=== PATIENT | female | born 1955 | race Asian ===

== ENCOUNTER 2022-09-12 12:28 | Inpatient (IN) ==
[2022-09-12 13:09] LABS: Basophils # (auto) 0.05 K/uL (0-0.2); Basophils % (auto) 0.6 %; Eosinophils # (auto) 0.16 K/uL (0-0.50); Eosinophils % (auto) 1.8 %; Hematocrit (blood only) 42.4 % (34.1-44.9); Hemoglobin 13.4 g/dl (12.0-16.0); Immature Granulocytes # (auto) 0.04 K/uL (0.00-0.02); Immature Granulocytes % (auto) 0.4 %; Lymphocytes # (auto) 2.72 K/uL (1.2-3.4); Lymphocytes % (auto) 30.5 %; Mean Corpuscular Hemoglobin 27.6 pg (25.0-34.0); Mean Corpuscular Hgb Conc 31.6 g/dL (32.0-36.0); Mean Corpuscular Volume 87.4 fL (80.0-100.0); Mean Platelet Volume 9.1 fL (9.4-12.3); Monocytes # (auto) 0.69 K/uL (0.24-0.82); Monocytes % (auto) 7.7 %; Neutrophils # (auto) 5.25 K/uL (1.4-6.5); Platelet Count 363 K/uL (130-400); RDW Coefficient of Variation 13.5 % (11.5-14.5); RDW Standard Deviation 43.5 fL (36.4-46.3); Red Blood Count 4.85 M/uL (3.93-5.22); White Blood Count 8.91 K/ul (4.8-10.8)
[2022-09-12 13:21] LABS: INR 1.1 (0.9-1.1); Partial Thromboplastin Time 28.2 Seconds (21.0-31.0); Prothrombin Time 11.2 Seconds (9.0-12.0)
[2022-09-12 13:34] LABS: Troponin I High Sensitivity 2.5 pg/ml (0-14)
[2022-09-12 13:37] LABS: Alanine Aminotransferase 13 U/L (7-52); Albumin Globulin Ratio 1.3 (0.9-2); Albumin Level 4.5 gm/dl (3.4-5.0); Alkaline Phosphatase 98 U/L (34-104); Anion Gap 8 (3-11); Aspartate Aminotransferase 15 U/L (13-39); BUN Creatinine Ratio 14.9 (10-20); Bilirubin,Total 0.5 mg/dl (0.2-1.0); Blood Urea Nitrogen 11 mg/dl (6-23); Calcium 9.7 mg/dl (8.5-10.1); Carbon Dioxide 26 mmol/L (21-32); Chloride 104 mmol/L (98-107); Est GFR (African American) 97.8 ml/min; Est GFR (Non-African American) 84.4 ml/min; Globulin 3.4 gm/dl (2.5-4.0); Glucose 92 mg/dl (70-99(Fasting)); Potassium 3.6 mmol/L (3.5-5.1); Sodium 138 mmol/L (136-145); Total Protein 7.9 gm/dl (6.0-8.3)
--- NOTE | 2022-09-12 13:57 | Electrocardiogram Report ---
Test Reason : Blood Pressure : / mmHG Vent. Rate : 081 BPM Atrial Rate : 081 BPM P-R Int : 186 ms QRS Dur : 084 ms QT Int : 394 ms P-R-T Axes : 053 027 019 degrees QTc Int : 457 ms Poor data quality, interpretation may be adversely affected Normal sinus rhythm Left atrial enlargement Poor R wave progression, consider anterior MO vs. lead placement vs. LVH Abnormal ECG No previous ECGs available Confirmed by Alfonso Bonilla ([id number]) on 09/12/2022 1:56:54 PM Referred By: Confirmed By:Alfonso Bonilla
[2022-09-12] MEDS ORDERED: ASPIRIN CHEW 324 MG PO STA (14:27)
--- NOTE | 2022-09-12 14:38 | Emergency Department Note ---
Impression & Plan Chest pain, Hypertension ED Provider Note NAME: LATIA VASQUES AGE: 67 SEX: F : 1955 ARRIVES VIA: Walk-In INFORMANT: Patient, the patient's son ED PROVIDER(S): Rich Fallon DO CHIEF COMPLAINT: Chest pain HPI: The patient is a 67-year-old female who presented to the emergency department for an evaluation of chest pain. The patient had a cardiac catheterization with cardiac stenting of her LAD in 2016. This was in [facility]. Her son presented to the emergency department with her and was able to produce the patient's cath report. The patient started having chest pain over the course of the last few days. She describes it as a very intense pain. Initially was on the right side of the chest. Now she notices it on the left side of the chest with radiation to the left arm. This is familiar to her as the last time she had this pain she had the cardiac catheterization with a stent. She denies having any nausea or vomiting. She denies having any difficulty breathing. She has had some upper abdominal pain recently but states that she currently has no abdominal pain or leg swelling. The patient's been co mpliant with her outpatient medications which include an antihypertensive medication. The patient denies having any black or bloody bowel moods. ROS: See above HPI for pertinent positives & negatives. A total of 10 systems reviewed and were otherwise negative. PAST MEDICAL HISTORY: See Below PAST SURGICAL HISTORY: See Below FAMILY HISTORY: See Below SOCIAL HISTORY: See Below HOME MEDICATIONS: See Below ALLERGIES: See Below VITALS: See Below PHYSICAL EXAMINATION: GENERAL: The patient is awake and alert. She is somewhat anxious appearing. EYES: The conjunctivae are clear. The pupils are round and reactive. EARS, NOSE, MOUTH AND THROAT: The nose is without any evidence of any deformity. NECK: The neck is nontender and supple. RESPIRATORY: Normal respiratory effort is noted there is no evidence of wheezing rhonchi or rales CARDIOVASCULAR: Regular rate and rhythm noted there no murmurs rubs or gallops normal S1 normal S2. GASTROINTESTINAL: The abdomen is soft. Abdomen is nontender. MUSCULOSKELETAL/EXTREMITIES: There is no evidence of gross deformity full range of motion is noted in the hips and shoulders. SKIN: There is no obvious evidence of any rash. There are no petechiae, pallor or cyanosis noted. NEUROLOGIC: Patient is awake alert and oriented x3 MEDICAL DECISION MAKING: The patient is a 67-year-old female who presented to the emergency department for an evaluation of chest discomfort. The patient has a history of coronary artery disease and she also has a history of angioplasty with coronary artery stenting. The patient was not seen in our facility. She is not from our area. I discussed the patient's laboratory and radiographic studies with her. She was treated with aspirin in the emergency department. On reevaluation she was feeling much better at this time is pain-free. I discussed the limitations of the emergency department work-up for chest pain with the patient and her family. Given that she is not from the area I would not be able to follow-up I do not feel she is a good candidate for outpatient follow-up given her previous history. She describes this chest pain is similar to when she has had her heart issues in the past. For this reason I discussed her case with the on-call [facility] hospitalist. Triage Nursing notes reviewed. Prior medical records reviewed Vital Signs: reviewed and remarkable for elevated blood pressure. Differential diagnosis: Cardiac ischemia, aortic dissection, pulmonary embolism, pneumothorax, pneumonia, pericarditis, myocarditis, esophageal rupture, GERD, cholecystitis, pancreatitis, musculoskeletal, as well as other pathologies. ER treatment provided: See below Diagnostics interpreted by me: ECG: EKG was obtained in the emergency department. My interpretation is normal sinus rhythm at 81 bpm. Inferior T wave inversions were noted. No previous tracing were available. Cardiac Monitoring: An order was placed for continuous cardiac monitoring. The monitor shows a rate of 98 bpm with sinus rhythm. Laboratory studies: As stated above and show below. Imaging studies: See below Consultation(s): I discussed this case with Dr. Vogel who is on-call for the [facility] hospitalist group. Past Med/Surg History Medical History (Updated 09/12/22 @ 17:10 by Kushal Rubin MD) Coronary artery disease Hypertension Surgical History H/O heart artery stent History of angioplasty Social History Smoking Status: Never smoker Feels Safe at Home: Yes Results & Data (ED) Vital Signs Vital Signs - 24 hr 09/12/22 12:32 09/12/22 14:26 09/12/22 15:24 Temperature 36.8 C Temperature Source Temporal Artery Scan Pulse Rate 80 86 Pulse Rate [Apical] Pulse Rhythm Regular Pulse Strength Normal Respiratory Rate 20 18 Respiratory Effort / Characteristics Non-Labored Spontaneous Respiratory Depth Normal Respiratory Pattern Regular Blood Pressure 153/81 H 211/90 H Blood Pressure [Right Arm] Blood Pressure Mean 105 130 Blood Pressure Mean [Right Arm] Blood Pressure Position Sitting Blood Pressure Position [Right Arm] Pulse Oximetry 97 100 Oxygen Delivery Method Room Air Room Air Oxygen Flow Rate 95 Sepsis Recent Fever Within 48 Hours No Sepsis New/Unexplained Change in Mental Status N/A Sepsis Action Taken by Nursing No Action Required 09/12/22 15:24 09/12/22 15:24 09/12/22 17:00 Temperature Temperature Source Pulse Rate Pulse Rate [Apical] 98 H 85 Pulse Rhythm Pulse Strength Respiratory Rate 18 18 Respiratory Effort / Characteristics Non-Labored Spontaneous Non-Labored Spontaneous Respiratory Depth Normal Normal Respiratory Pattern Regular Regular Blood Pressure Blood Pressure [Right Arm] 172/81 H Blood Pressure Mean Blood Pressure Mean [Right Arm] 111 Blood Pressure Position Blood Pressure Position [Right Arm] Sitting Pulse Oximetry 98 98 95 Oxygen Delivery Method Room Air Room Air Room Air Oxygen Flow Rate Sepsis Recent Fever Within 48 Hours Sepsis New/Unexplained Change in Mental Status Sepsis Action Taken by Long Term Medications Current Medication List: was personally reviewed by me Laboratory Data Attestation: I reviewed the patient's lab results. Result diagrams: 09/12/22 12:52 09/12/22 12:52 Lab Results 09/12/22 09/12/22 09/12/22 Range/Units 12:52 12:52 12:52 WBC 8.91 (4.8-10.8) K/ul RBC 4.85 (3.93-5.22) M/uL Hgb 13.4 (12.0-16.0) g/dl Hct 42.4 (34.1-44.9) % MCV 87.4 (80.0-100.0) fL MCH 27.6 (25.0-34.0) pg MCHC 31.6 L (32.0-36.0) g/dL RDW Std Deviation 43.5 (36.4-46.3) fL RDW Coeff of Samantha 13.5 (11.5-14.5) % Plt Count 363 (130-400) K/uL MPV 9.1 L (9.4-12.3) fL Immature Gran % (Auto) 0.4 % Neut % (Auto) 59.0 % Lymph % (Auto) 30.5 % Pope % (Auto) 7.7 % Eos % (Auto) 1.8 % Baso % (Auto) 0.6 % Neut # (Auto) 5.25 (1.4-6.5) K/uL Lymph # (Auto) 2.72 (1.2-3.4) K/uL Pope # (Auto) 0.69 (0.24-0.82) K/uL Eos # (Auto) 0.16 (0-0.50) K/uL Baso # (Auto) 0.05 (0-0.2) K/uL Immature Gran # (Auto) 0.04 H (0.00-0.02) K/uL PT 11.2 (9.0-12.0) Seconds INR 1.1 (0.9-1.1) APTT 28.2 (21.0-31.0) Seconds PTT Ratio 1.0 D-Dimer (0-500) ug/L FEU Sodium 138 (136-145) mmol/L Potassium 3.6 (3.5-5.1) mmol/L Chloride 104 (98-107) mmol/L Carbon Dioxide 26 (21-32) mmol/L Anion Gap 8 (3-11) BUN 11 (6-23) mg/dl Creatinine 0.74 (0.6-1.2) mg/dl Est Cr Clr Drug Dosing Not Reportable Est GFR ( Amer) 97.8 ml/min Est GFR (Non-Af Amer) 84.4 ml/min BUN/Creatinine Ratio 14.9 (10-20) Glucose 92 (70-99(Fasting)) mg/dl Calcium 9.7 (8.5-10.1) mg/dl Total Bilirubin 0.5 (0.2-1.0) mg/dl AST 15 (13-39) U/L ALT 13 (7-52) U/L Alkaline Phosphatase 98 (34-104) U/L Troponin I High Sens 2.5 (0-14) pg/ml Total Protein 7.9 (6.0-8.3) gm/dl Albumin 4.5 (3.4-5.0) gm/dl Globulin 3.4 (2.5-4.0) gm/dl Albumin/Globulin Ratio 1.3 (0.9-2) Lipase (11-82) U/L SARS-CoV-2, RNA, NAAT (NEGATIVE) 09/12/22 09/12/22 09/12/22 Range/Units 12:52 14:42 15:34 WBC (4.8-10.8) K/ul RBC (3.93-5.22) M/uL Hgb (12.0-16.0) g/dl Hct (34.1-44.9) % MCV (80.0-100.0) fL MCH (25.0-34.0) pg MCHC (32.0-36.0) g/dL RDW Std Deviation (36.4-46.3) fL RDW Coeff of Samantha (11.5-14.5) % Plt Count (130-400) K/uL MPV (9.4-12.3) fL Immature Gran % (Auto) % Neut % (Auto) % Lymph % (Auto) % Pope % (Auto) % Eos % (Auto) % Baso % (Auto) % Neut # (Auto) (1.4-6.5) K/uL Lymph # (Auto) (1.2-3.4) K/uL Pope # (Auto) (0.24-0.82) K/uL Eos # (Auto) (0-0.50) K/uL Baso # (Auto) (0-0.2) K/uL Immature Gran # (Auto) (0.00-0.02) K/uL PT (9.0-12.0) Seconds INR (0.9-1.1) APTT (21.0-31.0) Seconds PTT Ratio D-Dimer 370 (0-500) ug/L FEU Sodium (136-145) mmol/L Potassium (3.5-5.1) mmol/L Chloride (98-107) mmol/L Carbon Dioxide (21-32) mmol/L Anion Gap (3-11) BUN (6-23) mg/dl Creatinine (0.6-1.2) mg/dl Est Cr Clr Drug Dosing Est GFR ( Amer) ml/min Est GFR (Non-Af Amer) ml/min BUN/Creatinine Ratio (10-20) Glucose (70-99(Fasting)) mg/dl Calcium (8.5-10.1) mg/dl Total Bilirubin (0.2-1.0) mg/dl AST (13-39) U/L ALT (7-52) U/L Alkaline Phosphatase (34-104) U/L Troponin I High Sens 2.8 (0-14) pg/ml Total Protein (6.0-8.3) gm/dl Albumin (3.4-5.0) gm/dl Globulin (2.5-4.0) gm/dl Albumin/Globulin Ratio (0.9-2) Lipase 14 (11-82) U/L SARS-CoV-2, RNA, NAAT NEGATIVE (NEGATIVE) Administered Medications Discontinued Medications Aspirin (Aspirin Chew 324 Mg) 324 mg PO NOW STA Stop: 09/12/22 14:28 Last Admin: 09/12/22 14:39 Dose: 324 mg Documented By: JOAQUIM Imaging Data Radiologist's Impression: Chest X-Ray 09/12/22 14:27 XR chest 1V portable HISTORY: Atypical Chest pain, nonspecific COMPARISON: None. FINDINGS: The lungs are clear. Cardiac silhouette is normal in size. No pleural effusions. No pneumothorax. Calcifications noted within the aortic knob. IMPRESSION: No acute process. ACT 112: Negative or not required by law. Electronically signed by: Gama Robles M.D. 09/12/2022 2:45 PM Discharge Plan Visit Data Chief Complaint: Chest Pain Stated Complaint: STINT IN HEART, CHEST PAIN, BACK PAIN, HIGH BP ED Provider: Rich Fallon Discharge Problem: Chest pain, Hypertension Patient Disposition: Being Evaluated by Hospitalist Forms Stand Alone Forms: [facility] Referrals Referrals: PCP,NO [Primary Care Provider] - : Chest pain Qualifiers: Chest pain type: unspecified Qualified Code(s): R07.9 - Chest pain, unspecified Hypertension Qualifiers: Hypertension type: unspecified Qualified Code(s): I10 - Essential (primary) hypertension
--- NOTE | 2022-09-12 14:46 | XRay Report ---
XR chest 1V portable HISTORY: Atypical Chest pain, nonspecific COMPARISON: None. FINDINGS: The lungs are clear. Cardiac silhouette is normal in size. No pleural effusions. No pneumot horax. Calcifications noted within the aortic knob. IMPRESSION: No acute process. ACT 112: Negative or not required by law. Electronically signed by: Gama Robles M.D. 09/12/2022 2:45 PM
[2022-09-12 14:47] LABS: D Dimer 370 ug/L FEU (0-500)
[2022-09-12 16:32] LABS: Troponin I High Sensitivity 2.8 pg/ml (0-14)
--- NOTE | 2022-09-12 16:41 | History & Physical Report ---
Date of Service September 12, 2022 Assessment & Plan (1) Chest pain: Plan: Chest pain, mod-high risk eval History of CAD with PCI to LAD in 2014. Patient with recurrent [place], is traveling to [employer]. Has a copy of her cardiac cath showed single-vessel disease with 80% occlusion, single stent placed. Was on DAPT, currently on Plavix Presented with right-sided chest pain which spread to the left side of chest similar to her original [place] Pain free at bedside after full dose aspirin, did not receive any nitro Poor progression on EKG, no acute ST segment changes Patient has had 1 month of URI symptoms without productive cough, does have mild tenderness to palpation of left upper chest Initial troponin negative. Trended Echo Heart score 45 points, moderate risk Recommended for troponin/observation. D-dimer negative, low suspicion for PE History of CAD with PCI to LAD 2015 Previously on DAPT, currently on Plavix 75 At that time as noted above Continue Plavix, diltiazem slow release 90 mg, valsartan 160mg, rosuvastatin 20 mg Chest pain eval URI symptoms Patient with cough and some shortness of breath x1 month for which she was treated as outpatient with Flagyl CT shows no lobar findings/pneumonia Leukocytosis not present COVID-negative Cardiac eval above, Pro-Olvin pending. Given prolonged symptoms of 1 month respiratory panel ordered Hypertension On Diovan (valsartan) 160 RN DERMATOLOGY , diltiazem 90 PT GERD On Sergil 40 mg (PPI equivalent to esomeprazole) Continue Protonix 40 mg while inpatient Asthma - On bexitrol (Salmeterol/Flucticasone, foreign brand) 50/100 1 puff as needed RN DERMATOLOGY - On Doxiva 200mg daily (doxophylline asthma international treatment) - No wheezing on exam - Albuterol PRN International medications, med reconciliation: Pending discussion with med robotic weld technician on how to add in an additional medication and reconcile appropriately. Reconciliation is performed at bedside. Patient is on medications as follows: Plavix 75 mg, Diovan 160 mg, diltiazem SR 90 mg, rosuvastatin 20 mg, PPI equivalent STAN Ethan appraisal as noted 40 mg, bexitrol 50/100, doxiva 200mg, dispense Flagyl for 1 month for cough/URI symptoms. Patient's son is bringing in medications, for any not available with formula equivalent will have sent down to pharmacy for verification and patient may use own meds as listed above DVT prophylaxis: Lovenox CODE STATUS: DNR/DNI. Did discuss at bedside with son at bedside. Son notes that his mother expressed a clear preference to not have CPR should she undergo cardiac arrest, although notes that his feelings as her son are different understands her wishes. Diet: N.p.o. pending completion of cardiac eval, LR 80 cc/h while n.p.o. Disposition: Telemetry medical for cardiac eval (2) Hypertension: (3) Asthma: (4) Coronary artery disease: (5) Hypertension: History of Present Illness Primary Care Provider: NO PCP Patient is a 67-year-old female with past medical history of [] ER Report/Review: EKG: Sinus rhythm. Poor R wave progression. No Q waves. No territorial ST segment changes. QTc 457 No leukocytosis Hemoglobin 13.4 INR 1.1 D-dimer 370 Creatinine with normal baseline, 0.74 on admission High-sensitivity troponin 2.8 on admission COVID-negative Visiting family from [facility]. 1x LAD stend in 2014. R sided pain which spread to L sided chest. Copy of heart cath w pt Pain free at bedside ASA full dose x1 --> pain free Per Pt: Patient is a six 7-year-[age] female with a past medical history of GERD, asthma, hypertension, and CAD with PCI to LAD in 2016 for single-vessel disease who is visiting her family from [facility] when she developed right-sided chest pain last night at 6 PM. Was doing okay, but felt somewhat uncomfortable at 23 AM. Pain intermittently improved overnight, again had pain which had moved to her left chest at 530 morning of admission. This was concerning as it was similar to the pain she experienced with her original LAD occlusion. She has had some increase shortness of breath over the last month with URI symptoms which has not improved with outpatient Flagyl. Her chest pain and shortness of breath is not worse with movement and is exacerbated by movement, has occurred intermittently at rest. She endorses additional epigastric pain and history of GERD. She is on a PPI equivalent for GERD as outpatient. She notes her blood pressure yesterday was high at 164/104 but did improve to 133/75 after taking her blood pressure medication. She has taken her medications including Plavix this mo rning. She uses a small amount of chew tobacco, no cigarette/cigar use. No alcohol use. No vaping, recreational marijuana, or other substance use. No known medical allergies. Medical history reviewed at bedside, procedural history reviewed with patient's at bedside they do endorse a history of PCI as noted. Patient does endorse some feeling of lightheadedness with her symptoms. DNR/DNI CODE STATUS, her son reports that as her son he feels that she should have at least a trial of CPR but patient expresses that she does not wish to have CPR/intubation/resuscitative efforts in the event of a cardiac or respiratory arrest. Past Med/Surg History Medical History (Updated 09/12/22 @ 17:10 by Kushal Rubin MD) Coronary artery disease Hypertension Surgical History H/O heart artery stent History of angioplasty Social History Smoking Status: Never smoker Feels Safe at Home: Yes Review of Systems Review of Systems: All systems reviewed & are unremarkable except as noted in HPI & below (Performed with assistance of family at bedside) Physical Exam Physical Exam: General: A&Ox3. NAD. Cooperative. HEENT: Atraumatic, normocephalic. Vision/hearing intact Pulm: CTAB A&P. -wheezes, -rales, -rhonchi. Symmetrical chest rise. No increase in work of breathing. No respiratory distress. Cardiac: RRR, +sm,. Radial pulses intact and symmetrical. JVD just above the level of the clavicle with slight HJR which diminishes without persistent elevation Abdominal: Nontender, nondistended, soft. BS present. Extremities: Warm, dry. Sensation intact in feet bilaterally to soft touch. Ankle dorsiflexion/plantarflexion intact bilaterally. No edema Results & Data Results & Data ([facility] [place]) Vital Signs (Past 12 Hours) Vital Signs Temp Pulse Pulse Resp BP Pulse Ox O2 Del Method 09/12/22 15:24 98 Room Air 09/12/22 15:24 98 H 18 98 Room Air 09/12/22 15:24 Room Air 09/12/22 14:26 86 18 211/90 H 100 09/12/22 12:32 36.8 C 80 20 153/81 H 97 Room Air O2 Flow Rate 09/12/22 15:24 09/12/22 15:24 09/12/22 15:24 95 09/12/22 14:26 09/12/22 12:32 PG Care Time/CCT Total # of Minutes Spent Total Time Spent with Patient: Total time spent is greater than 50% in coordination of care (as documented) at patient's floor/unit and/or counseling patient: Coding Level of Care Code INT OBSERVATION CARE 50M LVL 2 Diagnoses Chest pain R07.9 Chest pain type: unspecified Hypertension I10 Hypertension type: unspecified Asthma J45.909 Coronary artery disease I25.10 Hypertension I10 (1) Chest pain Chest pain type: unspecified Qualified Code(s): R07.9 - Chest pain, unspecified (2) Hypertension Hypertension type: unspecified Qualified Code(s): I10 - Essential (primary) hypertension
[2022-09-12] MEDS ORDERED: hydrALAZINE HCL 20 MG/ML VIAL IV PRN (18:11)
[2022-09-12] MEDS ORDERED: dilTIAZem HCL 30 MG TAB PO ONE ×3 (18:15→21:00)
[2022-09-12] MEDS ORDERED: NITROGLYCERIN SL 0.4 MG/TAB TAB SL PRN (19:19)
[2022-09-12] MEDS ORDERED: METOPROLOL TARTRATE 1 MG/ML VIAL IV PRN (19:19)
[2022-09-12] MEDS ORDERED: ACETAMINOPHEN 325 MG TAB PO PRN (19:19)
[2022-09-12] MEDS ORDERED: LACTATED RINGER'S 1,000 ML IV SCH (19:19)
[2022-09-12] MEDS: FAMOTIDINE 20 MG in SYRINGE 3 ML IV SCH (21:45)
[2022-09-13 07:52] LABS: Basophils # (auto) 0.05 K/uL (0-0.2); Basophils % (auto) 0.7 %; Eosinophils % (auto) 2.7 %; Hematocrit (blood only) 41.2 % (34.1-44.9); Hemoglobin 13.1 g/dl (12.0-16.0); Immature Granulocytes # (auto) 0.03 K/uL (0.00-0.02); Immature Granulocytes % (auto) 0.4 %; Lymphocytes % (auto) 30.8 %; Mean Corpuscular Hgb Conc 31.8 g/dL (32.0-36.0); Mean Platelet Volume 9.4 fL (9.4-12.3); Monocytes # (auto) 0.49 K/uL (0.24-0.82); Monocytes % (auto) 6.6 %; Neutrophils % (auto) 58.8 %; Platelet Count 337 K/uL (130-400); RDW Coefficient of Variation 13.9 % (11.5-14.5); RDW Standard Deviation 44.2 fL (36.4-46.3); Red Blood Count 4.68 M/uL (3.93-5.22); White Blood Count 7.47 K/ul (4.8-10.8)
[2022-09-13 08:12] LABS: BUN Creatinine Ratio 19.8 (10-20); Calcium 8.9 mg/dl (8.5-10.1); Creatinine Clr Calc Pharmacy 58.7 ml/min; Est GFR (African American) 71.4 ml/min; Est GFR (Non-African American) 61.6 ml/min; Potassium 3.7 mmol/L (3.5-5.1)
--- NOTE | 2022-09-13 08:53 | Hospitalist Progress Note ---
Date of Service September 13, 2022 Assessment & Plan (1) Chest pain: Plan: Chest pain, mod-high risk eval History of CAD with PCI to LAD in 2014. Patient with recurrent [place], is traveling to [place] [employer]. Has a copy of her cardiac cath showed single-vessel disease with 80% occlusion, single stent placed. Was on DAPT, currently on Plavix Presented with right-sided chest pain which spread to the left side of chest similar to her original [place] Pain free at bedside after full dose aspirin, did not receive any nitro Poor progression on EKG, no acute ST segment changes Patient has had 1 month of URI symptoms without productive cough, does have mild tenderness to palpation of left upper chest Initial troponin negative. Trended Echo Heart score 45 points, moderate risk Recommended for troponin/observation. D-dimer negative, low suspicion for PE History of CAD with PCI to LAD 2015 Previously on DAPT, currently on Plavix 75 At that time as noted above Continue Plavix, diltiazem slow release 90 mg, valsartan 160mg, rosuvastatin 20 mg Chest pain eval URI symptoms Patient with cough and some shortness of breath x1 month for which she was treated as outpatient with Flagyl CT shows no lobar findings/pneumonia Leukocytosis not present COVID-negative Cardiac eval above, Pro-Olvin pending. Given prolonged symptoms of 1 month respiratory panel ordered Hypertension On Diovan (valsartan) 160 SAAS ARCHITECT , diltiazem 90 PT GERD On Sergil 40 mg (PPI equivalent to esomeprazole) Continue Protonix 40 mg while inpatient Asthma - On bexitrol (Salmeterol/Flucticasone, foreign brand) 50/100 1 puff as needed SAAS ARCHITECT - On Doxiva 200mg daily (doxophylline asthma international treatment) - No wheezing on exam - Albuterol PRN International medications, med reconciliation: Pending discussion with med industrial engineering technician on how to add in an additional medication and reconcile appropriately. Reconciliation is performed at bedside. Patient is on medications as follows: Plavix 75 mg, Diovan 160 mg, diltiazem SR 90 mg, rosuvastatin 20 mg, PPI equivalent STAN Ethan appraisal as noted 40 mg, bexitrol 50/100, doxiva 200mg, dispense Flagyl for 1 month for cough/URI symptoms. Patient's son is bringing in medications, for any not available with formula equivalent will have sent down to pharmacy for verification and patient may use own meds as listed above DVT prophylaxis: Lovenox CODE STATUS: DNR/DNI. Did discuss at bedside with son at bedside. Son notes that his mother expressed a clear preference to not have CPR should she undergo cardiac arrest, although notes that his feelings as her son are different understands her wishes. Diet: N.p.o. pending completion of cardiac eval, LR 80 cc/h while n.p.o. Disposition: Telemetry medical for cardiac eval (2) Hypertension: (3) Asthma: (4) Coronary artery disease: Admission and Anticipated Discharge Date Admission Date: September 12, 2022 Results & Data Results & Data ([facility]) Vital Signs (Past 12 Hours) Vital Signs Temp Pulse Pulse Resp BP Pulse Ox O2 Del Method 09/13/22 08:02 36.9 C 77 18 154/82 H 98 Room Air 09/13/22 07:52 78 09/13/22 02:55 36.7 C 75 16 133/76 98 Room Air 09/12/22 23:49 78 09/12/22 22:54 36.5 C 77 16 126/76 98 Room Air 09/12/22 22:03 77 PG Care Time/CCT Total # of Minutes Spent Total Time Spent with Patient: Total time spent is greater than 50% in coordination of care (as documented) at patient's floor/unit and/or counseling patient: Coding Diagnoses Chest pain R07.9 Chest pain type: unspecified Hypertension I10 Hypertension type: unspecified Asthma J45.909 Coronary artery disease I25.10 (1) Chest pain Chest pain type: unspecified Qualified Code(s): R07.9 - Chest pain, un specified (2) Hypertension Hypertension type: unspecified Qualified Code(s): I10 - Essential (primary) hypertension
[2022-09-13] MEDS ORDERED: dilTIAZem HCL 120 MG CAPCR PO SCH (09:00)
[2022-09-13] MEDS ORDERED: PANTOprazole 40 MG TAB PO SCH (09:00)
[2022-09-13] MEDS ORDERED: ROSUVASTATIN CALCIUM 20 MG TAB PO SCH (09:00)
[2022-09-13] MEDS ORDERED: CLOPIDOGREL BISULFATE 75 MG TAB PO SCH (09:00)
[2022-09-13] MEDS: FAMOTIDINE 20 MG in SYRINGE 3 ML IV SCH (09:10)
--- NOTE | 2022-09-13 10:21 | Discharge Summary ---
Date of Service September 13, 2022 Admission HPI Per Admitting Provider Patient is a 67-year-old female with past medical history of [] ER Report/Review: EKG: Sinus rhythm. Poor R wave progression. No Q waves. No territorial ST segment changes. QTc 457 No leukocytosis Hemoglobin 13.4 INR 1.1 D-dimer 370 Creatinine with normal baseline, 0.74 on admission High-sensitivity troponin 2.8 on admission COVID-negative Visiting family from [facility]. 1x LAD stend in 2014. R sided pain which spread to L sided chest. Copy of heart cath w pt Pain free at bedside ASA full dose x1 --> pain free Per Pt: Patient is a six 7-year-[age] female with a past medical history of GERD, asthma, hypertension, and CAD with PCI to LAD in 2016 for single-vessel disease who is visiting her family from [facility] when she developed right-sided chest pain last night at 6 PM. Was doing okay, but felt somewhat uncomfortable at 23 AM. Pain intermittently improved overnight, again had pain which had moved to her left chest at 530 morning of admission. This was concerning as it was similar to the pain she experienced with her original LAD occlusion. She has had some increase shortness of breath over the last month with URI symptoms which has not improved with outpatient Flagyl. Her chest pain and shortness of breath is not worse with movement and is exacerbated by movement, has occurred intermittently at rest. She endorses additional epigastric pain and history of GERD. She is on a PPI equivalent for GERD as outpatient. She notes her blood pressure yesterday was high at 164/104 but did improve to 133/75 after taking her blood pressure medication. She has taken her medications including Plavix this morning. She uses a small amount of chew tobacco, no cigarette/cigar use. No alcohol use. No vaping, recreational marijuana, or other substance use. No known medical allergies. Medical history reviewed at bedside, procedural history reviewed with patient's at bedside they do endorse a history of PCI as noted. Patient does endorse some feeling of lightheadedness with her symptoms. DNR/DNI CODE STATUS, her son reports that as her son he feels that she should have at least a trial of CPR but patient expresses that she does not wish to have CPR/intubation/resuscitative efforts in the event of a cardiac or respiratory arrest. Admission Exam Per Admitting Provider General: A&Ox3. NAD. Cooperative. HEENT: Atraumatic, normocephalic. Vision/hearing intact Pulm: CTAB A&P. -wheezes, -rales, -rhonchi. Symmetrical chest rise. No increase in work of breathing. No respiratory distress. Cardiac: RRR, +sm,. Radial pulses intact and symmetrical. JVD just above the level of the clavicle with slight HJR which diminishes without persistent elevation Abdominal: Nontender, nondistended, soft. BS present. Extremities: Warm, dry. Sensation intact in feet bilaterally to soft touch. Ankle dorsiflexion/plantarflexion intact bilaterally. No edema Principal Diagnosis Chest Pain, HTN Urgency Discharge Exam General: WD/WN female sitting up in bed, son at bedside HEENT: head normocephalic, atraumatic, mmm, trachea midline Resp: CTAB, no w/c/r, on room air CV: RRR, +murmur best appreciated at RUSB, no pitting edema/calf tenderness GI: +BS, soft/NT : no crowell MSK/Neuro: moves all extremities, no focal deficit/facial droop, sensation intact Psych: AOx3, pleasant and cooperative -- wanting to go home Skin: warm, dry Discharge Data Allergies Allergy/AdvReac Type Severity Reaction Status Date / Time No Known Allergies Allergy Verified 09/12/22 17:29 Consultations 09/12/22 16:50 ED Decision to Admit Stat Ordered Studies Chest X-Ray 09/12/22 14:27 XR chest 1V portable HISTORY: Atypical Chest pain, nonspecific COMPARISON: None. FINDINGS: The lungs are clear. Cardiac silhouette is normal in size. No pleural effusions. No pneumothorax. Calcifications noted within the aortic knob. IMPRESSION: No acute process. ACT 112: Negative or not required by law. Electronically signed by: Gama Robles M.D. 09/12/2022 2:45 PM Hospital Course (1) Chest pain: Admitted with chest pain in her R chest and then resolved/radiated again to her left chest. Similar but slightly different than original ID w/ L chest pain. BP was 211/90s Hx CAD w/ PCI to LAD in 2014, was on DAPT, remains on Plavix daily Frequent travel between [facility] and [place] * Has a copy of her cardiac cath showed single-vessel disease with 80% occlusion, single stent placed. Was on DAPT, currently on Plavix No further CP, however had HYPERTENSIVE URGENCY on admission with BPs 211/90 and additional 30mg Cardizem given Decision to increase her home cardizem to 120mg daily from 90mg for better BP control Troponin negative x 3 Ddimer NEGATIVE ECHO w/o wma, does note normal EF, moderate aortic stenosis with mild-mod aortic regurgitation, mild MR. RVSP is normal -- copy of chart to be provided to son for follow up at home. Rec routine monitoring for Has been on Flagyl x 1month for diarrhea w/ mucus without improvement in GI SYMPTOMS [employer] NEGATIVE, done for reports of URI symptoms but appeared to be GI related. Does have occasional SOB/wheeze (appears c/w asthma/allergies, rec trial zyrtec) and has inhalers she uses on occasion. rec f/u PCP for further eval GI at home vs follow up locally offered. Did make appt per son request. -- son reported to supervising physician that sister is physician and could do colonoscopy at home. Also rec'd to increase fiber supplementation Continue plavix 75mg daily for CAD Continue valsartan 160mg, INCREASED cardizem to 120mg daily -- BP 154/82 prior to discharge Patient and son at bedside anxious for discharge, no further chest pain or arrhythmia on monitor (2) Coronary artery disease: History of CAD with PCI to LAD 2014 Previously on DAPT, currently on Plavix 75 Trop negative x 3 Continued Plavix, increased diltiazem 120mg and valsartan at d/c Continue crestor 20mg (3) Hypertensive urgency: BP elevated as outlined, improved with increased BP medication -- continued at d/c and to monitor BPs at home after discharge (4) Hypertension: improved w/ treatment -- see above (5) Asthma: On bexitrol (Salmeterol/Flucticasone, foreign brand) 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 During your stay at [facility], we have made an effort to correct the problem that brought you to the hospital while keeping you as comfortable as possible. Medications were used to bring your condition under control and your discharge instructions will include directions for any medications you should take after leaving the hospital. Please make sure you see your Primary Care Provider as part of your follow up plan. Activity: As commented below Non-emergency contact: Primary Care Provider, Medical Record Assistant and Drive In Theater Attendant Call non-emergency contact if: you have any medication questions Follow-up/Referrals: Janes Poole DO [Physician] - Flex Nieto MD [Physician] - 10/04/22 10:00 am (Please arrive 15 minutes prior to appointment time) PCP,JIMMY [Primary Care Provider] - Addtl Attending Provider Instructions: You have been hospitalized for chest pain. Your cardiac enzymes were checked and not elevated. Ultrasound of the heart was not suggestive of any acute event. You do have some narrowing of the aortic valve but normal pumping function. You do have thickening of the heart which is likely from long standing elevated blood pressures. Your blood pressure was elevated and we gave additional Cardizem, and your usual 90mg dose has been increased to 120mg daily at discharge for better blood pressure control. You should continue to monitor your blood pressures at home and alert your medical provider if any significant sustained elevations. Try and limit your salt/sodium intake at home and maintain a heart healthy diet. You should follow up with your usual customer response representative/primary care in the next 7-10 days to monitor your progress. We have arranged for follow up with GI if you have any ongoing diarrhea, although this is felt to be viral related. Please return to the ER with any recurrence of chest pain, shortness of breath, fever, or for any other symptoms concerning for you. Take care! Pending Studies at Discharge: No Stand-Alone Forms: My [facility], Smoking Cessation Medications and DC Order Prescriptions: New diltiazem HCl 120 mg capsule,extended release 24 hr 120 mg PO DAILY Qty: 30 0RF Continued Azmasol Hfa Inh 2 puff inhalation DIRECTED PRN (Reason: Shortness Of Breath Or Wheezing) diltiazem HCl 90 mg Capsule,Extended Release 12 Hr 0 mg PO DAILY Rx Instructions: SON UNSURE OF MG valsartan [Diovan] 160 mg Tablet 160 mg PO DAILY Rx Instructions: Per son Bexitrol-F Bexicap 50/250 0 puff inhalation DIRECTED PRN (Reason: Shortness Of Breath) Deflux Tab 10 mg PO BID Doxiva 20 mg PO BID Rx Instructions: PER SON Monas 10 mg PO DIRECTED Pladix 75 mg PO DAILY Rofutin 20 mg PO DAILY PRN (Reason: ..) Sergil 40 mg PO DIRECTED PRN (Reason: ..) Rx Instructions: bid prn Discharge Orders: Discharge Order (Routine); Ordered 09/13/22 Ordered By: Hermila Valdez Admission Data Admit Date/Time: 09/12/22 18:11 Attending Provider: Ne Barrios Admit Provider: Kushal Rubin Primary Care Provider: PCP,NO Other Providers: Kushal Rubin Other Interventions: Discharge Summary Assessment (RN) Last Done: 09/13/22 11:22 Supervising Physician Co-Signing Physician Notes PA Supervision Note: I personally saw and examined the patient. I verified all art points and agree with HERMELINDO Valdez with the following exceptions and/or additions: S-patient doing well, no further chest pain. No shortness of breath. Blood pressures are better controlled O- Vitals reviewed Gen: Alert awake and oriented, NAD HEENT: Anicteric sclerae, EOMI CV: RRR 2/6 SANOTS nl S1S2 Pulm: CTAB no wcr Abd: +BS soft NT ND no masses or hernias Ext: No edema, 2+ DP pulses Skin: No rashes, warm/dry Neuro: Full strength throughout A/H-38-[id number]-old female here with atypical chest pain hypertensive urgency, now all resolved Ruled out for ID Echocardiogram with moderate aortic stenosis, moderate AI, preserved EF Needs improved blood pressure control-increase diltiazem as above for now, continue to monitor Follow-up with PCP once returns home Coding Level of Care Code D/C DAY MANAGEMENT >30 MINS Diagnoses Chest pain R07.9 Chest pain type: unspecified Coronary artery disease I25.10 Hypertensive urgency I16.0 Hypertension I10 Hypertension type: unspecified Asthma J45.909
--- NOTE | 2022-09-13 10:29 | XCELERA ---
[id number] \\[id number]
[2022-09-13 11:05] LABS: Adenovirus PCR Not Detected (NotDetected); Bordetella parapertussis PCR Not Detected (NotDetected); Bordetella pertussis PCR Not Detected (NotDetected); Chlamydia pneumoniae PCR Not Detected (NotDetected); Coronavirus 229E PCR Not Detected (NotDetected); Coronavirus CoV-2 (COVID19)PCR Not Detected (NotDetected); Coronavirus HKU1 PCR Not Detected (NotDetected); Coronavirus NL63 PCR Not Detected (NotDetected); Coronavirus OC43PCR Not Detected (NotDetected); Human Metapneumovirus PCR Not Detected (NotDetected); Influenza A PCR Not Detected (NotDetected); Influenza B PCR Not Detected (NotDetected); Mycoplasma pneumoniae PCR Not Detected (NotDetected); Parainfluenza Virus 1 PCR Not Detected (NotDetected); Parainfluenza Virus 2 PCR Not Detected (NotDetected); Parainfluenza Virus 3 PCR Not Detected (NotDetected); Parainfluenza Virus 4 PCR Not Detected (NotDetected); Respiratory Syncytial VirusPCR Not Detected (NotDetected); Rhinovirus/Enterovirus PCR Not Detected (NotDetected)
== END 2022-09-13 11:48 | disposition home or self-care (01) | DRG 305 ==
LOC: ED 12:28 → SUATTDRO 18:11 → 2N 18:11

== ENCOUNTER 2022-09-18 11:04 | Inpatient (IN) ==
--- NOTE | 2022-09-18 11:37 | Emergency Department Note ---
Impression & Plan Flank pain, Coronary artery disease, Hypertension ED Provider Note NAME: LATIA VASQUES AGE: 67 SEX: F : 1955 ARRIVES VIA: Walk-In INFORMANT: Patient, ED PROVIDER(S): Chacorta Kang MD Chief Complaint: Flank pain HPI: Patient presents due to concern for right flank pain. Patient has had this intermittently. The patient's son is at bedside does relate that they have been trialing medications at home which were recommended after most recent admission. They have trialed [id number] medications as well as prescription medications but without significant improvement in symptoms. They have tried m uscle relaxants as well as antacids. The patient has not complained of any chest pains or shortness of breath no cough or fever. No history of kidney stones. Patient denies any blood in their urine or stool. The patient has had no associated nausea or vomiting. No head neck pain. The patient have been seen in the emergency department on September 12. Patient did have a cardiac catheterization and cardiac stenting of her LAD in 2016 in [facility]. Patient reportedly had been having some chest pain in the last few days at that time described as very intense. Patient was admitted to the medicine service at that time. The patient did have an echocardiogram completed which showed LV normal in structure and function with an EF of 55 to 60%. Patient does have grade 1 diastolic dysfunction with mild concentric LVH. Mild to moderate aortic regurgitation and mild mitral regurg. There is moderate valvular aortic stenosis. Per review of the patient's discharge summary the patient did have hypertensive urgency on admission with BPs at 211/90. Patient's home Cardizem was increased 220 mg daily from 90 mg. The patient had 3 negative troponins and negative D-dimer. ROS: See HPI for pertinent positives and negatives. A total of 10 systems were reviewed and otherwise negative. Past medical history: See below Surgical history: See below Social history: See below Physical Exam: GENERAL: NAD, wearing a mask, non-toxic. EYE EXAM: Normal conjunctiva. PERRL, no anisocoria and EOM's grossly intact w/o pain. NECK: Supple, no nuchal rigidity, no adenopathy, non-tender. No signs of meningismus. FROM of the neck with good chin to chest and neck extension. No stridor. LUNGS: Clear to auscultation. Normal chest wall mechanics. HEART: NSR, no MRG. ABDOMEN: Abdomen soft, non-tender, normo-active bowel sounds, no masses, no rebound or guarding. BACK: No CVA TTP. SKIN: No rashes and no bruising. UPPER EXTREMITIES: Upper extremities are grossly normal. LOWER EXTREMITIES: Grossly normal, no edema. NEURO EXAM: A&O x3, cranial nerves II-XII grossly intact, normal speech, moves all 4 extremities. Differential diagnoses: Renal colic, UTI, appendicitis, diverticulitis, mesenteric ischemia, aortic pathology, infections, inflammatory bowel disease, PUD, biliary pathology, as well as other pathologies. Course: Patient was seen and evaluated the bedside. Full history physical exam was performed. EKG interpreted by me Normal sinus rhythm, rate of 76, normal intervals normal axis T wave version lead III noncontiguous leads, no ST elevations. No significant change for [facility] September 12, 2022. Imaging Studies: See Below Cardiac monitoring: An order was placed for continuous cardiac monitoring. The monitor shows a rate of with rhythm. MDM: Patient presented due to concern for right-sided flank pain which is now bilateral in nature. Patient does not have any significant abdominal tenderness to palpation and the patient has no chest pains or shortness of breath. Blood work is obtained along with an EKG troponin and CT abdomen pelvis. The patient's blood work shows a normal white count H&H and platelet count. Kidney function is unremarkable. Mild hyponatremia and hypokalemia noted. The patient did receive IV fluids as well as IV morphine. Upon reassessment the patient had mild improvement but still had discomfort. Patient was ordered additional medications. Urinalysis negative. The patient CT abdomen pelvis shows no bowel thickening or obstruction normal appendix. The patient may have a diarrheal type illness. Mildly distended bladder but no bladder wall thickening. There is mild to moderate bile duct dilatation which could be related to patient's postcholecystectomy state. Patient does not have any evidence of elevated LFTs. Upon reassessment the patient was still having pain. GPatient does not have any significant changes on EKG and has a negative troponin. Believe ACS or atypical chest pain to be less likely given the patient's intractable back pain I did speak the on-call hospitalist Dr. Glover and the patient was admitted to the medicine service. Additional pain medication was ordered for the patient. Of note the patient had reported some small amount of blood in stool. The patient had recommended that a female perform an external rectal exam. This was performed by Katty Polo PA-C. No evidence of any thrombosed or bleeding hemorrhoids no fissures or other concerning findings based on external exam. Patient declines a digital rectal exam at this time. Past Med/Surg History Medical History Coronary artery disease Hypertension Surgical History H/O heart artery stent History of angioplasty Social History Smoking Status: Never smoker Second Hand Exposure: No; Hx Alcohol Use: No Hx Substance Use: No Preferred Language: Armenian Communication Ability: Effective Communication Tools: Physical Gestures and Other Clinical Nursing Professor Required: Yes Beliefs That Will Affect Care: Cultural Cultural Beliefs: no ice, does not eat pork Current Living Situation: Alone Other Information That Helps Us Care for You: No Feels Safe at Home: Yes Safety Concerns: Feels Safe At This Time Assistive Devices: None Allergies Allergies Allergy/AdvReac Type Severity Reaction Status Date / Time No Known Allergies Allergy Verified 09/18/22 16:32 Home Meds Home Medications Medication Instructions Recorded Confirmed Azmasol Hfa Inh 2 puff inhalation DIRECTED PRN 09/12/22 09/18/22 Shortness Of Breath Or Wheezing Bexitrol-F Bexicap 50/250 0 puff inhalation DIRECTED PRN 09/12/22 09/18/22 Shortness Of Breath Deflux Tab 10 mg PO BID 09/12/22 09/18/22 Doxiva 20 mg PO BID 09/12/22 09/18/22 Monas 10 mg PO DIRECTED 09/12/22 09/18/22 Pladix 75 mg PO DAILY 09/12/22 09/18/22 Rofutin 20 mg PO DAILY PRN .. 09/12/22 09/18/22 Sergil 40 mg PO DIRECTED PRN .. 09/12/22 09/18/22 valsartan 160 mg tablet (Diovan) 160 mg PO DAILY 09/12/22 09/18/22 Previous Rx's Medication Instructions Recorded diltiazem HCl 120 mg capsule,24 120 mg PO DAILY #30 caps 09/13/22 hr,extended release Results & Data (ED) Vital Signs Vital Signs - 24 hr 09/18/22 11:07 09/18/22 11:27 09/18/22 11:30 Temperature 36.6 C Temperature Source Temporal Artery Scan Pulse Rate 104 H 87 86 Pulse Rate from SpO2 Sensor 89 88 Respiratory Rate 22 29 H 33 H Respiratory Effort / Characteristics Non-Labored Spontaneous Respiratory Depth Normal Respiratory Pattern Regular Blood Pressure 147/82 H Blood Pressure Mean 103 Blood Pressure Position Sitting Pulse Oximetry 99 98 99 Oxygen Delivery Method Room Air Sepsis Recent Fever Within 48 Hours No Sepsis New/Unexplained Change in Mental Status No Sepsis Action Taken by Nursing No Action Required 09/18/22 11:40 09/18/22 11:50 09/18/22 12:00 Temperature Temperature Source Pulse Rate 83 79 85 Pulse Rate from SpO2 Sensor 83 83 85 Respiratory Rate 20 19 20 Respiratory Effort / Characteristics Respiratory Depth Respiratory Pattern Blood Pressure Blood Pressure Mean Blood Pressure Position Pulse Oximetry 95 98 99 Oxygen Delivery Method Sepsis Recent Fever Within 48 Hours Sepsis New/Unexplained Change in Mental Status Sepsis Action Taken by Nursing 09/18/22 12:24 09/18/22 12:30 09/18/22 12:40 Temperature Temperature Source Pulse Rate 82 80 77 Pulse Rate from SpO2 Sensor 82 79 77 Respiratory Rate 22 18 18 Respiratory Effort / Characteristics Respiratory Depth Respiratory Pattern Blood Pressure Blood Pressure Mean Blood Pressure Position Pulse Oximetry 98 95 96 Oxygen Delivery Method Sepsis Recent Fever Within 48 Hours Sepsis New/Unexplained Change in Mental Status Sepsis Action Taken by Nursing 09/18/22 12:50 09/18/22 12:52 09/18/22 12:52 Temperature Temperature Source Pulse Rate 75 78 Pulse Rate from SpO2 Sensor 76 78 Respiratory Rate 17 18 Respiratory Effort / Characteristics Respiratory Depth Respiratory Pattern Blood Pressure 149/81 H Blood Pressure Mean 103 Blood Pressure Position Pulse Oximetry 97 96 Oxygen Delivery Method Sepsis Recent Fever Within 48 Hours Sepsis New/Unexplained Change in Mental Status Sepsis Action Taken by Nursing 09/18/22 13:00 09/18/22 13:00 09/18/22 13:10 Temperature Temperature Source Pulse Rate 75 73 Pulse Rate from SpO2 Sensor 74 73 Respiratory Rate 18 17 Respiratory Effort / Characteristics Respiratory Depth Respiratory Pattern Blood Pressure 140/75 Blood Pressure Mean 96 Blood Pressure Position Pulse Oximetry 97 96 Oxygen Delivery Method Sepsis Recent Fever Within 48 Hours Sepsis New/Unexplained Change in Mental Status Sepsis Action Taken by Nursing 09/18/22 13:20 09/18/22 13:30 09/18/22 13:30 Temperature Temperature Source Pulse Rate 74 77 Pulse Rate from SpO2 Sensor 77 Respiratory Rate 31 H 19 Respiratory Effort / Characteristics Respiratory Depth Respiratory Pattern Blood Pressure 148/88 H Blood Pressure Mean 108 Blood Pressure Position Pulse Oximetry 98 Oxygen Delivery Method Sepsis Recent Fever Within 48 Hours Sepsis New/Unexplained Change in Mental Status Sepsis Action Taken by Nursing 09/18/22 13:40 09/18/22 13:50 09/18/22 15:43 Temperature Temperature Source Pulse Rate 71 75 Pulse Rate from SpO2 Sensor 71 77 Respiratory Rate 23 22 Respiratory Effort / Characteristics Respiratory Depth Respiratory Pattern Blood Pressure 139/71 Blood Pressure Mean 93 Blood Pressure Position Pulse Oximetry 96 97 Oxygen Delivery Method Room Air Sepsis Recent Fever Within 48 Hours Sepsis New/Unexplained Change in Mental Status Sepsis Action Taken by Nursing 09/18/22 15:43 09/18/22 15:50 09/18/22 16:00 Temperature Temperature Source Pulse Rate Pulse Rate from SpO2 Sensor 87 70 Respiratory Rate Respiratory Effort / Characteristics Respiratory Depth Respiratory Pattern Blood Pressure 135/77 Blood Pressure Mean 96 Blood Pressure Position Pulse Oximetry 98 96 Oxygen Delivery Method Room Air Room Air Sepsis Recent Fever Within 48 Hours Sepsis New/Unexplained Change in Mental Status Sepsis Action Taken by Nursing 09/18/22 16:00 09/18/22 16:10 09/18/22 16:20 Temperature Temperature Source Pulse Rate Pulse Rate from SpO2 Sensor 77 73 75 Respiratory Rate Respiratory Effort / Characteristics Respiratory Depth Respiratory Pattern Blood Pressure Blood Pressure Mean Blood Pressure Position Pulse Oximetry 97 99 97 Oxygen Delivery Method Room Air Sepsis Recent Fever Within 48 Hours Sepsis New/Unexplained Change in Mental Status Sepsis Action Taken by Nursing 09/18/22 16:30 09/18/22 16:40 09/18/22 16:50 Temperature Temperature Source Pulse Rate Pulse Rate from SpO2 Sensor 70 84 76 Respiratory Rate Respiratory Effort / Characteristics Respiratory Depth Respiratory Pattern Blood Pressure Blood Pressure Mean Blood Pressure Position Pulse Oximetry 97 99 97 Oxygen Delivery Method Room Air Room Air Sepsis Recent Fever Within 48 Hours Sepsis New/Unexplained Change in Mental Status Sepsis Action Taken by Nursing 09/18/22 17:00 09/18/22 17:00 09/18/22 17:10 Temperature Temperature Source Pulse Rate Pulse Rate from SpO2 Sensor 83 85 Respiratory Rate Respiratory Effort / Characteristics Respiratory Depth Respiratory Pattern Blood Pressure 136/89 Blood Pressure Mean 104 Blood Pressure Position Pulse Oximetry 99 98 Oxygen Delivery Method Room Air Room Air Sepsis Recent Fever Within 48 Hours Sepsis New/Unexplained Change in Mental Status Sepsis Action Taken by Nursing 09/18/22 17:20 09/18/22 17:30 Temperature Temperature Source Pulse Rate Pulse Rate from SpO2 Sensor 87 80 Respiratory Rate Respiratory Effort / Characteristics Respiratory Depth Respiratory Pattern Blood Pressure Blood Pressure Mean Blood Pressure Position Pulse Oximetry 99 99 Oxygen Delivery Method Room Air Sepsis Recent Fever Within 48 Hours Sepsis New/Unexplained Change in Mental Status Sepsis Action Taken by Half-Way Medications Current Medication List: was personally reviewed by me Laboratory Data Attestation: I reviewed the patient's lab results. Result diagrams: 09/18/22 11:14 09/18/22 11:14 Lab Results 09/18/22 09/18/22 09/18/22 Range/Units 11:14 11:14 11:14 WBC 8.61 (4.8-10.8) K/ul RBC 4.77 (3.93-5.22) M/uL Hgb 13.3 (12.0-16.0) g/dl Hct 40.9 (34.1-44.9) % MCV 85.7 (80.0-100.0) fL MCH 27.9 (25.0-34.0) pg MCHC 32.5 (32.0-36.0) g/dL RDW Std Deviation 41.9 (36.4-46.3) fL RDW Coeff of Samantha 13.4 (11.5-14.5) % Plt Count 388 (130-400) K/uL MPV 9.5 (9.4-12.3) fL Immature Gran % (Auto) 0.5 % Neut % (Auto) 70.0 % Lymph % (Auto) 22.5 % [place] % (Auto) 5.9 % Eos % (Auto) 0.8 % Baso % (Auto) 0.3 % Neut # (Auto) 6.02 (1.4-6.5) K/uL Lymph # (Auto) 1.94 (1.2-3.4) K/uL [place] # (Auto) 0.51 (0.24-0.82) K/uL Eos # (Auto) 0.07 (0-0.50) K/uL Baso # (Auto) 0.03 (0-0.2) K/uL Immature Gran # (Auto) 0.04 H (0.00-0.02) K/uL ESR 89 H (0-30) mm/hr Sodium 134 L (136-145) mmol/L Potassium 3.2 L (3.5-5.1) mmol/L Chloride 99 (98-107) mmol/L Carbon Dioxide 26 (21-32) mmol/L Anion Gap 9 (3-11) BUN 6 (6-23) mg/dl Creatinine 0.74 (0.6-1.2) mg/dl Est Cr Clr Drug Dosing Not Reportable Est GFR ( Amer) 97.8 ml/min Est GFR (Non-Af Amer) 84.4 ml/min BUN/Creatinine Ratio 8.1 L (10-20) Glucose 142 H (70-99(Fasting)) mg/dl Calcium 9.9 (8.5-10.1) mg/dl Total Bilirubin 0.5 (0.2-1.0) mg/dl AST 17 (13-39) U/L ALT 15 (7-52) U/L Alkaline Phosphatase 88 (34-104) U/L Troponin I High Sens 5.7 (0-14) pg/ml C-Reactive Protein (0-0.5) mg/dl Total Protein 8.2 (6.0-8.3) gm/dl Albumin 4.4 (3.4-5.0) gm/dl Globulin 3.8 (2.5-4.0) gm/dl Albumin/Globulin Ratio 1.2 (0.9-2) Lipase 15 (11-82) U/L Urine Color Urine Appearance (Clear) Urine pH (4.5-7.5) Ur Specific [place] (1.000-1.030) Urine Protein (Negative) Urine Glucose (UA) (Negative) Urine Ketones (Negative) Urine Blood (Negative) Urine Nitrite (Negative) Urine Bilirubin (Negative) Urine Urobilinogen (Negative) Ur Leukocyte Esterase (Negative) SARS-CoV-2, RNA, NAAT (NEGATIVE) 09/18/22 09/18/22 09/18/22 Range/Units 11:14 13:22 17:11 WBC (4.8-10.8) K/ul RBC (3.93-5.22) M/uL Hgb (12.0-16.0) g/dl Hct (34.1-44.9) % MCV (80.0-100.0) fL MCH (25.0-34.0) pg MCHC (32.0-36.0) g/dL RDW Std Deviation (36.4-46.3) fL RDW Coeff of Samantha (11.5-14.5) % Plt Count (130-400) K/uL MPV (9.4-12.3) fL Immature Gran % (Auto) % Neut % (Auto) % Lymph % (Auto) % [place] % (Auto) % Eos % (Auto) % Baso % (Auto) % Neut # (Auto) (1.4-6.5) K/uL Lymph # (Auto) (1.2-3.4) K/uL [place] # (Auto) (0.24-0.82) K/uL Eos # (Auto) (0-0.50) K/uL Baso # (Auto) (0-0.2) K/uL Immature Gran # (Auto) (0.00-0.02) K/uL ESR (0-30) mm/hr Sodium (136-145) mmol/L Potassium (3.5-5.1) mmol/L Chloride (98-107) mmol/L Carbon Dioxide (21-32) mmol/L Anion Gap (3-11) BUN (6-23) mg/dl Creatinine (0.6-1.2) mg/dl Est Cr Clr Drug Dosing Est GFR ( Amer) ml/min Est GFR (Non-Af Amer) ml/min BUN/Creatinine Ratio (10-20) Glucose (70-99(Fasting)) mg/dl Calcium (8.5-10.1) mg/dl Total Bilirubin (0.2-1.0) mg/dl AST (13-39) U/L ALT (7-52) U/L Alkaline Phosphatase (34-104) U/L Troponin I High Sens (0-14) pg/ml C-Reactive Protein 0.79 H (0-0.5) mg/dl Total Protein (6.0-8.3) gm/dl Albumin (3.4-5.0) gm/dl Globulin (2.5-4.0) gm/dl Albumin/Globulin Ratio (0.9-2) Lipase (11-82) U/L Urine Color Yellow Urine Appearance Clear (Clear) Urine pH 7.0 (4.5-7.5) Ur Specific [place] 1.002 (1.000-1.030) Urine Protein Negative (Negative) Urine Glucose (UA) Negative (Negative) Urine Ketones Negative (Negative) Urine Blood Negative (Negative) Urine Nitrite Negative (Negative) Urine Bilirubin Negative (Negative) Urine Urobilinogen Negative (Negative) Ur Leukocyte Esterase Negative (Negative) SARS-CoV-2, RNA, NAAT NEGATIVE (NEGATIVE) Administered Medications Acetaminophen (Acetaminophen 500 Mg Tab) 1,000 mg PO TID [facility] Stop: 10/18/22 20:59 Last Admin: 09/18/22 22:02 Dose: 1,000 mg Documented By: [id number] Clopidogrel Bisulfate (Clopidogrel Bisulfate 75 Mg Tab) 75 mg PO [facility] Stop: 10/18/22 20:59 Last Admin: 09/18/22 22:02 Dose: 75 mg Documented By: [id number] Dicyclomine HCl (Dicyclomine Hcl 20 Mg Tab) 20 mg PO Q6H [facility] Stop: 10/18/22 22:14 Last Admin: 09/19/22 03:51 Dose: 20 mg Documented By: Admin: 09/19/22 01:48 Dose: 20 mg Documented By: GERONIMO Diltiazem HCl (Diltiazem Hcl 120 Mg Capcr) 120 mg PO [facility] Stop: 10/18/22 20:59 Last Admin: 09/18/22 22:04 Dose: 120 mg Documented By: [id number] Lactated Ringer's (Lr) 1,000 mls @ 125 mls/hr IV .Q8H [facility] Stop: 10/18/22 19:14 Last Admin: 09/19/22 03:51 Dose: 125 mls/hr Documented By: Infusion: 09/19/22 03:51 Dose: 125 mls/hr Documented By: Admin: 09/18/22 19:54 Dose: 125 mls/hr Documented By: [id number] Montelukast Sodium (Montelukast Sodium 10 Mg Tablet) 10 mg PO [facility] Stop: 10/18/22 20:59 Last Admin: 09/18/22 22:04 Dose: 10 mg Documented By: [id number] Oxycodone HCl (Oxycodone Hcl Ir 5 Mg Tab (Immediate Release)) 5 mg PO Q4H PRN PRN Reason: Pain Stop: 10/02/22 19:49 Last Admin: 09/19/22 02:02 Dose: 5 mg Documented By: GERONIMO Pantoprazole Sodium (Pantoprazole 40 Mg Tab) 40 mg PO HS MARTIN Stop: 10/18/22 20:59 Last Admin: 09/18/22 22:03 Dose: 40 mg Documented By: [id number] Discontinued Medications Sodium Chloride (Nss 1000ml) 1,000 mls @ 999 mls/hr IV .Q1H1M STA Stop: 09/18/22 13:05 Last Infusion: 09/18/22 16:34 Dose: 0 mls/hr Documented By: [id number] Admin: 09/18/22 12:26 Dose: 999 mls/hr Documented By: GINA Pantoprazole Sodium 40 mg/ (Syringe) 10 mls @ 5 mls/min IV NOW ONE Stop: 09/18/22 14:04 Last Admin: 09/18/22 15:00 Dose: 5 mls/min Documented By: [id number] Acetaminophen (Ofirmev) 1,000 mg in 100 mls @ 400 mls/hr IV NOW STA Stop: 09/18/22 14:17 Last Infusion: 09/18/22 14:52 Dose: 0 mls/hr Documented By: [id number] Admin: 09/18/22 14:36 Dose: 400 mls/hr Documented By: [id number] Potassium Chloride (K Lacho / Wtr) 10 meq in 100 mls @ 100 mls/hr IV Q1H [facility]ARTIN Stop: 09/19/22 00:14 Last Infusion: 09/19/22 03:53 Dose: 0 mls/hr Documented By: Admin: 09/19/22 02:04 Dose: 100 mls/hr Documented By: Infusion: 09/19/22 00:55 Dose: 100 mls/hr Documented By: Admin: 09/18/22 23:55 Dose: 100 mls/hr Documented By: GERONIMO Ioversol (Optiray 350 100ml) 87 ml IV ONCE ONE Stop: 09/18/22 14:16 Last Admin: 09/18/22 14:14 Dose: 87 ml Documented By: [email or web address] Morphine Sulfate (Morphine Sulfate 4 Mg/Ml 1 Ml Carp\Vial) 4 mg IV NOW STA Stop: 09/18/22 12:06 Last Admin: 09/18/22 12:27 Dose: 4 mg Documented By: AM Morphine Sulfate (Morphine Sulfate 4 Mg/Ml 1 Ml Carp\Vial) 4 mg IV NOW STA Stop: 09/18/22 15:36 Last Admin: 09/18/22 15:41 Dose: 4 mg Documented By: [id number] Morphine Sulfate (Morphine Sulfate 4 Mg/Ml 1 Ml Carp\Vial) 4 mg IV NOW STA Stop: 09/18/22 18:25 Last Admin: 09/18/22 18:33 Dose: 4 mg Documented By: [id number] Ondansetron HCl (Ondansetron Inj 2 Mg/Ml 2 Ml Vial) 4 mg IV NOW STA Stop: 09/18/22 12:06 Last Admin: 09/18/22 12:26 Dose: 4 mg Documented By: AM Imaging Data Radiologist's Impression: Abdomen/Pelvis CT 09/18/22 12:[address] WITH IV CONTRAST CT DOSE: 829.67 mGycm HISTORY: b/l flank pain TECHNIQUE: Multiaxial CT images of the abdomen and pelvis were performed following the use of intravenous contrast. A dose lowering technique was utilized adhering to the principles of ALARA. COMPARISON STUDY: None. FINDINGS: Mild dependent changes seen within the lung bases. No fractures within the visualized osseous structures. Mild degenerative changes within the lumbar spine. Prior cholecystectomy. This likely accounts for the mild to moderate bile duct dilatation. No hepatic or splenic masses. The main portal vein is patent. The pancreas, adrenal glands, and spleen are unremarkable. No renal or ureteral stones. No hydronephrosis. There is a 2 cm hypodense lesion within the right kidney consistent with a cyst. Moderate calcified plaque within the mildly ectatic abdominal aorta. No evidence for an aortic dissection. No pelvic lymphadenopathy or pelvic free fluid. The bladder is mildly distended. No bladder wall thickening. Prior hysterectomy. Mild pelvic floor collapse. No bowel wall thickening or obstruction. Normal appendix. Fluid-filled nondilated colon. This could be seen in the setting of a diarrheal illness. IMPRESSION: 1. No bowel wall thickening or obstruction. 2. Normal appendix. 3. Fluid-filled nondilated colon. This is nonspecific but could be seen in the setting of a diarrheal illness. 4. Mildly distended bladder. No bladder wall thickening. 5. Mild to moderate bile duct dilatation. This could be due to the patient's postcholecystectomy state. Recommend correlation with LFTs. ACT 112: Negative or not required by law. Electronically signed by: Gama Robles M.D. 09/18/2022 3:23 PM Discharge Plan Visit Data Chief Complaint: Back Injury/Pain Stated Complaint: BACK PAIN ED Provider: Chacorta Kang Discharge Problem: Flank pain, Coronary artery disease, Hypertension Patient Disposition: Admitted As Inpatient Discharge Instructions Interventions: ED Discharge Assessment Last Done: 09/18/22 22:51
[2022-09-18] MEDS ORDERED: ONDANSETRON INJ 2 MG/ML 2 ML VIAL IV STA (12:05)
[2022-09-18] MEDS ORDERED: SODIUM CHLORIDE 0.9% 1000ML 1,000 ML IV STA (12:05)
[2022-09-18] MEDS ORDERED: MoRPHine SULFATE 4 MG/ML 1 ML CARP\\VIAL IV STA ×3 (12:05→18:24)
[2022-09-18 12:19] LABS: Basophils # (auto) 0.03 K/uL (0-0.2); Basophils % (auto) 0.3 %; Eosinophils # (auto) 0.07 K/uL (0-0.50); Eosinophils % (auto) 0.8 %; Hematocrit (blood only) 40.9 % (34.1-44.9); Hemoglobin 13.3 g/dl (12.0-16.0); Immature Granulocytes # (auto) 0.04 K/uL (0.00-0.02); Immature Granulocytes % (auto) 0.5 %; Lymphocytes # (auto) 1.94 K/uL (1.2-3.4); Lymphocytes % (auto) 22.5 %; Mean Corpuscular Hemoglobin 27.9 pg (25.0-34.0); Mean Corpuscular Hgb Conc 32.5 g/dL (32.0-36.0); Mean Corpuscular Volume 85.7 fL (80.0-100.0); Mean Platelet Volume 9.5 fL (9.4-12.3); Monocytes # (auto) 0.51 K/uL (0.24-0.82); Monocytes % (auto) 5.9 %; Neutrophils # (auto) 6.02 K/uL (1.4-6.5); Platelet Count 388 K/uL (130-400); RDW Coefficient of Variation 13.4 % (11.5-14.5); RDW Standard Deviation 41.9 fL (36.4-46.3); Red Blood Count 4.77 M/uL (3.93-5.22); White Blood Count 8.61 K/ul (4.8-10.8)
[2022-09-18 12:34] LABS: Troponin I High Sensitivity 5.7 pg/ml (0-14)
[2022-09-18 12:41] LABS: Alanine Aminotransferase 15 U/L (7-52); Albumin Globulin Ratio 1.2 (0.9-2); Albumin Level 4.4 gm/dl (3.4-5.0); Alkaline Phosphatase 88 U/L (34-104); Anion Gap 9 (3-11); Aspartate Aminotransferase 17 U/L (13-39); BUN Creatinine Ratio 8.1 (10-20); Bilirubin,Total 0.5 mg/dl (0.2-1.0); Blood Urea Nitrogen 6 mg/dl (6-23); Calcium 9.9 mg/dl (8.5-10.1); Carbon Dioxide 26 mmol/L (21-32); Chloride 99 mmol/L (98-107); Est GFR (African American) 97.8 ml/min; Est GFR (Non-African American) 84.4 ml/min; Globulin 3.8 gm/dl (2.5-4.0); Glucose 142 mg/dl (70-99(Fasting)); Lipase 15 U/L (11-82); Potassium 3.2 mmol/L (3.5-5.1); Sodium 134 mmol/L (136-145); Total Protein 8.2 gm/dl (6.0-8.3)
[2022-09-18 13:43] LABS: Appearance Urine Clear (Clear); Bilirubin Urine Negative (Negative); Blood Urine Negative (Negative); Color Urine Yellow; Glucose Urine UA Negative (Negative); Ketones Urine Negative (Negative); Leukocyte Esterase Urine Negative (Negative); Nitrite Urine Negative (Negative); Protein Urine Negative (Negative); Specific Gravity Urine 1.002 (1.000-1.030); Urobilinogen Urine Negative (Negative)
[2022-09-18] MEDS ORDERED: ACETAMINOPHEN 1,000 MG/100 ML VIAL IV STA (14:03)
[2022-09-18] MEDS ORDERED: PANTOprazole 40 MG in SYRINGE 0 ML IV ONE (14:03)
[2022-09-18] MEDS ORDERED: OPTIRAY 350 100ml IV ONE (14:15)
--- NOTE | 2022-09-18 15:05 | Emergency Department Note ---
ED Visit Note EMERGENCY DEPARTMENT PROCEDURE NOTE: I was asked by Dr. Kang to examine the rectal area of this 67-year-old female XX patient. Please refer to their dictation for the complete history, physical exam, and ED course. Patient requested a female practitioner. RECTAL: Examination of the external rectal area note some tiny, healthy appearing external hemorrhoids, no active bleeding. No fissures identified. No thrombosed hemorrhoids. No other masses or tenderness.
--- NOTE | 2022-09-18 15:25 | CT Scan Report ---
ABDOMEN AND PELVIS CT WITH IV CONTRAST CT DOSE: 829.67 mGycm HISTORY: b/l flank pain TECHNIQUE: Multiaxial CT images of the abdomen and pelvis were performed following the use of intrave nous contrast. A dose lowering technique was utilized adhering to the principles of ALARA. COMPARISON STUDY: None. FINDINGS: Mild dependent changes seen within the lung bases. No fractures within the visualized osseo us structures. Mild degenerative changes within the lumbar spine. Prior cholecystectomy. This likely accounts for the mild to moderate bile duct dilatation. No hepatic or splenic masses. The main portal vein is patent. The pancreas, adrenal glands, and spleen are unremarkable. No renal or ureteral ston es. No hydronephrosis. There is a 2 cm hypodense lesion within the right kidney consistent with a cys t. Moderate calcified plaque within the mildly ectatic abdominal aorta. No evidence for an aortic dis section. No pelvic lymphadenopathy or pelvic free fluid. The bladder is mildly distended. No bladder wall thickening. Prior hysterectomy. Mild pelvic floor collapse. No bowel wall thickening or obstruct ion. Normal appendix. Fluid-filled nondilated colon. This could be seen in the setting of a diarrheal illness. IMPRESSION: 1. No bowel wall thickening or obstruction. 2. Normal appendix. 3. Fluid-filled nondilated colon. This is nonspecific but could be seen in the setting of a diarrheal illness. 4. Mildly distended bladder. No bladder wall thickening. 5. Mild to moderate bile duct dilatation. This could be due to the patient's postcholecystectomy stat e. Recommend correlation with LFTs. ACT 112: Negative or not required by law. Electronically signed by: Gama Robles M.D. 09/18/2022 3:23 PM
--- NOTE | 2022-09-18 16:19 | History & Physical Report ---
Date of Service September 18, 2022 Assessment & Plan (1) Flank pain: Plan: Only underlying pathology on CT appears to be her diarrheal illness - she is taking domperidone and recommend she stops this. Metronidazole clearly isn't helping wither therefore recommend stopping this in addition Pulmonary embolism considered but given duration without hypoxia and negative d- dimer probability is extremely low for an atypical pain such as this Ureterolithiasis considered but given duration of pain and completely normal UA I have very low suspicion of this Ductal dilatation on CT suspect this is her baseline given normal LFTs - also with no RUQ pain on exam I do not feel an MRCP is warranted Stool PCR and c. diff will be sent to assess cause of persistent diarrheal illness. ESR and CRP also added to labs Consider Imodium if having diarrhea Bentyl for abdominal pain given history of "gastric issues" which I presume to be IBS Will consult gastroenterology to consider colonoscopy as this would be the next investigation step (2) Coronary artery disease: Plan: Continue clopidogrel, valsartan, diltiazem Patient advise to discuss rosuvastatin with her cardiology as she is not routinely taking this (3) Hypertension: Plan: Continue diltiazem and valsartan (4) Asthma: Plan: Continue her routine inhalers Plan VTE Prophylaxis - low risk, chemical prophylaxis deferred Diet - clear liquid Disposition - admit to med/surg Admission and Anticipated Discharge Date Admission Date: September 18, 2022 History of Present Illness Chief Complaint: Right flank pain Primary Care Provider: NO PCP Lisa Mckinnon is a 67 year old female who presents to the ER with flank pain. Patient is from [facility] and history obtained with use of science interpreter and patient's son at bedside. Initial right flank pain is the same pain she had when she was admitted on September 12 although it started the day prior to this. She reported initially never having this pain previously however later in our conversation she said she was in a hospital in [facility] with a similar pain related to her "gastric issues" and she received something through her IV which worked. Generally though this is very out of the ordinary for her to have pain like this. Reportedly improved while she was in hospital recently but started getting worse again for the last 2-3 days. Progressively getting worse sharp pain, worse on movement although she is also moving around in bed constantly trying and get comfortable. No worse on inspiration. Possible improvement when she passes flatus. Worse with sitting up or standing. Crying out with 10/10 pain in the ER but currently 7/10 after morphine given. No improvement with "muscle relaxant". Her son feels he is no longer able to take her home as her pain is not controlled. She has a previously cholecystectomy and reports this feels similar to her previous gallbladder pain. She has a diarrheal illness for the last month with mucus and has been taking metronidazole 800mg PO daily which has not been helping. Despite all her "gastric issues" she reportedly has never had a colonoscopy. Given her uncontrolled pain she was referred to medicine for admission and ongoing management. Allergies Allergy/AdvReac Type Severity Reaction Status Date / Time No Known Allergies Allergy Verified 09/18/22 16:32 Home Medications Medication Instructions Recorded Confirmed Type Azmasol Hfa Inh 2 puff inhalation DIRECTED PRN 09/12/22 09/18/22 History Shortness Of Breath Or Wheezing Bexitrol-F Bexicap 50/250 0 puff inhalation DIRECTED PRN 09/12/22 09/18/22 History Shortness Of Breath Deflux Tab 10 mg PO BID 09/12/22 09/18/22 History Doxiva 20 mg PO BID 09/12/22 09/18/22 History Monas 10 mg PO DIRECTED 09/12/22 09/18/22 History Pladix 75 mg PO DAILY 09/12/22 09/18/22 History Rofutin 20 mg PO DAILY PRN .. 09/12/22 09/18/22 History Sergil 40 mg PO DIRECTED PRN .. 09/12/22 09/18/22 History valsartan 160 mg tablet (Diovan) 160 mg PO DAILY 09/12/22 09/18/22 History diltiazem HCl 120 mg capsule,24 120 mg PO DAILY #30 caps 09/13/22 09/18/22 Rx hr,extended release Past Med/Surg History Medical History Coronary artery disease Hypertension Surgical History H/O heart artery stent History of angioplasty Social History Smoking Status: Never smoker Second Hand Exposure: No; Hx Alcohol Use: No Hx Substance Use: No Preferred Language: Syriac Communication Ability: Effective Communication Tools: Physical Gestures and Other Correctional Counselor/Case Manager Required: Yes Beliefs That Will Affect Care: Cultural Cultural Beliefs: no ice, does not eat pork Current Living Situation: Alone Other Information That Helps Us Care for You: No Feels Safe at Home: Yes Safety Concerns: Feels Safe At This Time Assistive Devices: None Review of Systems Review of Systems: All systems reviewed & are unremarkable except as noted in HPI & below Physical Exam Constitutional: well developed, well nourished and + acute distress (with right flank pain) Eyes: PERRL, conjunctivae normal, anicteric sclerae ENMT: external ear and nose normal, oropharynx normal Neck: trachea midline, no thyromegaly Respiratory: normal respiratory effort, lungs clear to auscultation Cardiovascular: RRR, no murmur, no edema Gastrointestinal (Abdomen): normal bowel sounds, soft, nontender, no hepatosplenomegaly Musculoskeletal: no cyanosis or clubbing, extremities motor strength 5/5 Unable to reproduce pain on palpation Skin: no rashes, warm and dry Neurologic: moves all extremities and awake; not confused Psychiatric: A+Ox3, euthymic affect Genitourinary: + CVA tenderness (right) Results & Data Results & [facility] ([facility]) Vital Signs (Past 12 Hours) Vital Signs Temp Pulse Resp BP Pulse Ox O2 Del Method 09/18/22 13:30 77 19 98 09/18/22 13:30 148/88 H 09/18/22 13:20 74 31 H 09/18/22 13:10 73 17 96 09/18/22 13:00 75 18 97 09/18/22 13:00 140/75 09/18/22 12:52 78 18 96 09/18/22 12:52 149/81 H 09/18/22 12:50 75 17 97 09/18/22 12:40 77 18 96 09/18/22 12:30 80 18 95 09/18/22 12:24 82 22 98 09/18/22 12:00 85 20 99 09/18/22 11:50 79 19 98 09/18/22 11:40 83 20 95 09/18/22 11:30 86 33 H 99 09/18/22 11:27 87 29 H 98 09/18/22 11:07 36.6 C 104 H 22 147/82 H 99 Room Air Diagnostic Findings XR chest 1V portable HISTORY: Atypical Chest pain, nonspecific COMPARISON: None. FINDINGS: The lungs are clear. Cardiac silhouette is normal in size. No pleural effusions. No pneumothorax. Calcifications noted within the aortic knob. IMPRESSION: No acute process. ABDOMEN AND PELVIS CT WITH IV CONTRAST CT DOSE: 829.67 mGycm HISTORY: b/l flank pain TECHNIQUE: Multiaxial CT images of the abdomen and pelvis were performed following the use of intravenous contrast. A dose lowering technique was utilized adhering to the principles of ALARA. COMPARISON STUDY: None. FINDINGS: Mild dependent changes seen within the lung bases. No fractures within the visualized osseous structures. Mild degenerative changes within the lumbar spine. Prior cholecystectomy. This likely accounts for the mild to moderate bile duct dilatation. No hepatic or splenic masses. The main portal vein is patent. The pancreas, adrenal glands, and spleen are unremarkable. No renal or ureteral stones. No hydronephrosis. There is a 2 cm hypodense lesion within the right kidney consistent with a cyst. Moderate calcified plaque within the mildly ectatic abdominal aorta. No evidence for an aortic dissection. No pelvic lymphadenopathy or pelvic free fluid. The bladder is mildly distended. No bladder wall thickening. Prior hysterectomy. Mild pelvic floor collapse. No bowel wall thickening or obstruction. Normal appendix. Fluid-filled nondilated colon. This could be seen in the setting of a diarrheal illness. IMPRESSION: 1. No bowel wall thickening or obstruction. 2. Normal appendix. 3. Fluid-filled nondilated colon. This is nonspecific but could be seen in the setting of a diarrheal illness. 4. Mildly distended bladder. No bladder wall thickening. 5. Mild to moderate bile duct dilatation. This could be due to the patient's pos tcholecystectomy state. Recommend correlation with LFTs. Medications Administered ER Medications Given: NSS 1L bolus Ondansetron 4mg IV Morphine 4mg IV x2 Acetaminophen 1000mg IV ECG Indication: abdominal pain Rate (beats per minute): 76 Rhythm: normal sinus Findings: no acute ischemic change Comparison ECG Date: from (September 12, 2022) Change: no significant change Code Status & VTE Plan Code Status Full PG Care Time/CCT Total # of Minutes Spent Total Time Spent: 70 Total Time Spent with Patient: Total time spent is greater than 50% in coordination of care (as documented) at patient's floor/unit and/or counseling patient: Coding Level of Care Code 11662 Initial Inpt Care Lvl 3 Diagnoses Flank pain R10.9 Coronary artery disease I25.10 Hypertension I10 Asthma J45.909
[2022-09-18] MEDS ORDERED: [UNRECOGNIZED DRUG - OTHER] INH PRN (19:50)
[2022-09-18] MEDS ORDERED: ONDANSETRON INJ 2 MG/ML 2 ML VIAL IV PRN (19:50)
[2022-09-18] MEDS ORDERED: ACETAMINOPHEN 325 MG TAB PO PRN (19:50)
[2022-09-18] MEDS ORDERED: [UNRECOGNIZED DRUG - OTHER] PO PRN (19:50)
[2022-09-18] MEDS ORDERED: [UNRECOGNIZED DRUG - OTHER] INH PRN (19:50)
[2022-09-18] MEDS: LACTATED RINGER'S 1,000 ML IV SCH (19:54)
[2022-09-18] MEDS ORDERED: [UNRECOGNIZED DRUG - OTHER] PO SCH (21:00)
[2022-09-18] MEDS: ACETAMINOPHEN 500 MG TAB PO SCH (22:02)
[2022-09-18] MEDS: CLOPIDOGREL BISULFATE 75 MG TAB PO SCH (22:02)
[2022-09-18] MEDS: PANTOprazole 40 MG TAB PO SCH (22:03)
[2022-09-18] MEDS: MONTELUKAST SODIUM 10 MG TABLET PO SCH (22:04)
[2022-09-18] MEDS: dilTIAZem HCL 120 MG CAPCR PO SCH (22:04)
[2022-09-18] MEDS: POTASSIUM CHLORIDE / WTR 10 MEQ/100 ML PLCT IV SCH (23:55)
[2022-09-19] MEDS: DICYCLOMINE HCL 20 MG TAB PO SCH ×5 (01:48→22:02)
[2022-09-19] MEDS: oxyCODONE HCL IR 5 MG TAB (IMMEDIATE RELEASE) PO PRN ×5 (02:02→23:35)
[2022-09-19] MEDS: POTASSIUM CHLORIDE / WTR 10 MEQ/100 ML PLCT IV SCH (02:04)
[2022-09-19] MEDS: LACTATED RINGER'S 1,000 ML IV SCH ×3 (03:51→20:55)
--- NOTE | 2022-09-19 08:24 | Hospitalist Progress Note ---
Date of Service September 19, 2022 Assessment & Plan (1) Flank pain: Plan: CTAP with only fluid filled nondilated colon due to her diarrheal state -Was taking Domperidone and Metronidazole and recommended to stop both due to no improvement in the diarrhea Pulmonary embolism considered but given duration without hypoxia and negative d- dimer probability is extremely low for an atypical pain such as this Pulse Ox 100% on RA Ureterolithiasis considered but given duration of pain and completely normal UA also low suspicion Ductal dilatation on CT with normal LFTs and no RUQ pain - likely normal in post cholecystectomy state Stool PCR and c. diff, Stool H Pylori and GI PCR panel also will be sent to assess cause of persistent diarrheal illness. ESR elevated 89, CRP pending Consider Imodium if having diarrhea, after C Diff resulted Continue Bentyl for abdominal pain given history of "gastric issues" which could be IBS Continue tylenol GI consulted Likely mechanical back pain Xray thoracic and lumbar spine per family request Heating pad PT evaluation Continue Tylenol (2) Coronary artery disease: Plan: Continue clopidogrel, valsartan, diltiazem Patient advise to discuss rosuvastatin with her poly operator as she is not routinely taking this (3) Hypertension: Plan: Continue diltiazem 120mg and valsartan 160mg (4) Asthma: Plan: Continue her routine inhalers (5) Hemorrhoids without complication: Plan: Anusol cream TID or after BM as needed Plan VTE Prophylaxis - low risk, chemical prophylaxis deferred Diet - clear liquid Disposition - admit to med/surg Admission and Anticipated Discharge Date Admission Date: September 18, 2022 Supervising Physician Co-Signing Physician Notes chart reviewed, agree pauline Betancourt PAC, as above Subjective Patient is awake in bed in [facility]. I spoke with patient and her son who was initially on the phone and then came in and was at bedside. Patient states she does feel slightly better with her right sided back pain today compared to yesterday. She also was complaining of diarrhea. She had one loose BM today per patient without any blood or melena. She is complaining of some rectal burning and discomfort with the frequent loose BMs. She had a rectal exam yesterday in the ER revealing external hemorrhoids. She is asking for some ointment for the hemorrhoids. Her son stated that his sister is a doctor in [facility] and stated patient has some arthritis and was asking about xrays. Review of Systems Constitutional: no fever, no chills, no weight loss and no weight gain Ear, Nose, Mouth, Throat: no nasal congestion, no post nasal drip and no pain with swallowing Respiratory: no cough, no chest congestion, no dyspnea and no hemoptysis Cardiovascular: no chest pain, no dyspnea, no syncope and no edema Gastrointestinal: + diarrhea/loose stools; no abdominal pain, no nausea, no vomiting, no dysphagia, no constipation and no blood in stools Genitourinary: no dysuria, no urinary frequency and no urinary hesitancy Musculoskeletal: + back pain and + limited range of motion; no neck pain and no muscle weakness Integumentary: no rash, no lesions and no new lesions Physical Exam Constitutional: WD/WN, vitals as above Neck: trachea midline, no thyromegaly Respiratory: normal respiratory effort, lungs clear to auscultation Cardiovascular: RRR, no murmur, no edema Extremities: no edema Gastrointestinal (Abdomen): normal bowel sounds, soft, nontender, no hepatosplenomegaly Musculoskeletal: mild pain to palpation thoracolumbar paraspinal muscles, no gross deformity, no CVA tenderness, No pain with palpation ribs Results & Data Results & Data ([facility]) Vital Signs (Past 12 Hours) Vital Signs Temp Pulse Resp BP Pulse Ox O2 Del Method 09/19/22 07:45 36.5 C 68 19 163/83 H 100 Room Air 09/18/22 23:16 36.6 C 74 18 145/89 H 98 Room Air 09/18/22 20:50 98 09/18/22 20:40 98 Room Air 09/18/22 20:30 98 09/18/22 20:20 98 Room Air Laboratory Results Abnormal lab results 09/18/22 09/18/22 09/18/22 Range/Units 11:14 11:14 11:14 ESR 89 H (0-30) mm/hr Sodium 134 L (136-145) mmol/L Potassium 3.2 L (3.5-5.1) mmol/L BUN/Creatinine Ratio 8.1 L (10-20) Glucose 142 H (70-99(Fasting)) mg/dl C-Reactive Protein 0.79 H (0-0.5) mg/dl Diagnostic Findings Abdomen/Pelvis CT 09/18/22 12:[address] WITH IV CONTRAST CT DOSE: 829.67 mGycm HISTORY: b/l flank pain TECHNIQUE: Multiaxial CT images of the abdomen and pelvis were performed following the use of intravenous contrast. A dose lowering technique was utilized adhering to the principles of ALARA. COMPARISON STUDY: None. FINDINGS: Mild dependent changes seen within the lung bases. No fractures within the visualized osseous structures. Mild degenerative changes within the lumbar spine. Prior cholecystectomy. This likely accounts for the mild to moderate bile duct dilatation. No hepatic or splenic masses. The main portal vein is patent. The pancreas, adrenal glands, and spleen are unremarkable. No renal or ureteral stones. No hydronephrosis. There is a 2 cm hypodense lesion within the right kidney consistent with a cyst. Moderate calcified plaque within the mildly ectatic abdominal aorta. No evidence for an aortic dissection. No pelvic lymphadenopathy or pelvic free fluid. The bladder is mildly distended. No bladder wall thickening. Prior hysterectomy. Mild pelvic floor collapse. No bowel wall thickening or obstruction. Normal appendix. Fluid-filled nondilated colon. This could be seen in the setting of a diarrheal illness. IMPRESSION: 1. No bowel wall thickening or obstruction. 2. Normal appendix. 3. Fluid-filled nondilated colon. This is nonspecific but could be seen in the setting of a diarrheal illness. 4. Mildly distended bladder. No bladder wall thickening. 5. Mild to moderate bile duct dilatation. This could be due to the patient's postcholecystectomy state. Recommend correlation with LFTs. ACT 112: Negative or not required by law. Electronically signed by: Gama Robles M.D. 09/18/2022 3:23 PM PG Care Time/CCT Total # of Minutes Spent Total Time Spent with Patient: Total time spent is greater than 50% in coordination of care (as documented) at patient's floor/unit and/or counseling patient: Coding Level of Care Code 72164 Subseq Hosp Care Lvl 3 Diagnoses Flank pain R10.9 Coronary artery disease I25.10 Associated angina: without angina Coronary Disease-Associated Artery/Lesion type: [place] artery [place] vs. transplanted heart: [place] heart Hypertension I10 Asthma J45.909 Hemorrhoids without complication K64.9 Time Spent (min) 20 (1) Coronary artery disease Associated angina: without angina Coronary Disease-Associated Artery/Lesion type: [place] artery [place] vs. transplanted heart: [place] heart Qualified Code(s): I25.10 - Atherosclerotic heart disease of [place] coronary artery without angina pectoris
[2022-09-19] MEDS: FEXOFENADINE HCL 180 MG TAB PO SCH (08:31)
[2022-09-19] MEDS: ACETAMINOPHEN 500 MG TAB PO SCH ×3 (08:31→20:06)
[2022-09-19] MEDS: VALSARTAN 80 MG TAB PO SCH (08:31)
--- NOTE | 2022-09-19 09:32 | Gastrointestinal Consultation ---
Date of Consultation September 19, 2022 Assessment & Plan (1) Diarrhea: (2) Flank pain: (3) Abnormal CT scan, colon: Plan Diff dx: bacterial vs viral enteritis vs IBD vs other. 1. Biofire. 2. Stool C Diff. 3. H pylori stool antigen. 4. Supportive care with IV fluids and lyte replacement. 5. Further reccs pending results of testing. Thank you for allowing us to participate in the care of this patient. If you have questions or concerns, please do not hesitate to contact us. Supervising Physician Co-Signing Physician Notes Agree with ROHIT Hernandez as above Abd: Soft, NT, ND, +BS Communicated with patient via Zoom call with son, as she refused hospital interpretation services Await stool studies Further recs to follow Continue current therapy and supportive care History of Present Illness Reason for Consultation: Right flank pain and Diarrhea Requesting Physician: Dr. Glover Attending Physician: Randy Waldrop DO History of Present Illness Patient is a 67 year-old female with a history of HTN, asthma and CAD with ongoing severe right-sided abdominal pain which has been persisting since 09/15/22. The pains are debilitating, rated 10/10 in intensity. There has been associated flatus and diarrhea. Patient has been using Pantoprazole and antacids with minimal benefit. On admission, she did have a CT a/p with findings of a fluid filled colon. No overt GIB. Labs reviewed. Unremarkable with the exception of hypokalemia, hyponatremia, and elevated inflammatory markers with a ESR of 89 and CRP of 0.79. Allergies Allergy/AdvReac Type Severity Reaction Status Date / Time No Known Allergies Allergy Verified 09/18/22 16:32 Home Medications Medication Instructions Recorded Confirmed Type Azmasol Hfa Inh 2 puff inhalation DIRECTED PRN 09/12/22 09/18/22 History Shortness Of Breath Or Wheezing Bexitrol-F Bexicap 50/250 0 puff inhalation DIRECTED PRN 09/12/22 09/18/22 History Shortness Of Breath Deflux Tab 10 mg PO BID 09/12/22 09/18/22 History Doxiva 20 mg PO BID 09/12/22 09/18/22 History Monas 10 mg PO DIRECTED 09/12/22 09/18/22 History Pladix 75 mg PO DAILY 09/12/22 09/18/22 History Rofutin 20 mg PO DAILY PRN .. 09/12/22 09/18/22 History Sergil 40 mg PO DIRECTED PRN .. 09/12/22 09/18/22 History valsartan 160 mg tablet (Diovan) 160 mg PO DAILY 09/12/22 09/18/22 History diltiazem HCl 120 mg capsule,24 120 mg PO DAILY #30 caps 09/13/22 09/18/22 Rx hr,extended release Patient History Medical History Coronary artery disease Hypertension Surgical History H/O heart artery stent History of angioplasty Social History Smoking Status: Never smoker Second Hand Exposure: No; Hx Alcohol Use: No Hx Substance Use: No Preferred Language: Yakut Communication Ability: Effective Communication Tools: Physical Gestures and Other Critical Care Transport Nurse Required: Yes Beliefs That Will Affect Care: Cultural Cultural Beliefs: no ice, does not eat pork Current Living Situation: Alone Other Information That Helps Us Care for You: No Feels Safe at Home: Yes Safety Concerns: Feels Safe At This Time Assistive Devices: None Review of Systems Constitutional: + fatigue; no fever and no chills Respiratory: no cough and no dyspnea Cardiovascular: no chest pain and no palpitations Gastrointestinal: as per Subjective / HPI Physical Exam Constitutional: WD/WN, vitals as above Eyes: EOM intact bilaterally Neck: normal visual inspection Respiratory: normal respiratory effort, lungs clear to auscultation Cardiovascular: Rate/Rhythm: regular rate and regular rhythm Heart Sounds: + murmur Gastrointestinal (Abdomen): normal bowel sounds, soft, nontender, no hepatosplenomegaly Musculoskeletal: Extremities: extremities normal to inspection Skin: warm and dry Psychiatric: A+Ox3, euthymic affect Results & Data ([facility]) Vital Signs (Past 12 Hours) Vital Signs Temp Pulse Resp BP Pulse Ox O2 Del Method 09/19/22 07:45 36.5 C 68 19 163/83 H 100 Room Air 09/18/22 23:16 36.6 C 74 18 145/89 H 98 Room Air Diagnostic Findings Laboratory Results WBC 8.61 K/ul (4.8-10.8) 09/18/22 11:14 RBC 4.77 M/uL (3.93-5.22) 09/18/22 11:14 Hgb 13.3 g/dl (12.0-16.0) 09/18/22 11:14 Hct 40.9 % (34.1-44.9) 09/18/22 11:14 MCV 85.7 fL (80.0-100.0) 09/18/22 11:14 MCH 27.9 pg (25.0-34.0) 09/18/22 11:14 MCHC 32.5 g/dL (32.0-36.0) 09/18/22 11:14 RDW Std Deviation 41.9 fL (36.4-46.3) 09/18/22 11:14 RDW Coeff of Samantha 13.4 % (11.5-14.5) 09/18/22 11:14 Plt Count 388 K/uL (130-400) 09/18/22 11:14 MPV 9.5 fL (9.4-12.3) 09/18/22 11:14 Immature Gran % (Auto) 0.5 % 09/18/22 11:14 Neut % (Auto) 70.0 % 09/18/22 11:14 Lymph % (Auto) 22.5 % 09/18/22 11:14 [place] % (Auto) 5.9 % 09/18/22 11:14 Eos % (Auto) 0.8 % 09/18/22 11:14 Baso % (Auto) 0.3 % 09/18/22 11:14 Neut # (Auto) 6.02 K/uL (1.4-6.5) 09/18/22 11:14 Lymph # (Auto) 1.94 K/uL (1.2-3.4) 09/18/22 11:14 [place] # (Auto) 0.51 K/uL (0.24-0.82) 09/18/22 11:14 Eos # (Auto) 0.07 K/uL (0-0.50) 09/18/22 11:14 Baso # (Auto) 0.03 K/uL (0-0.2) 09/18/22 11:14 Immature Gran # (Auto) 0.04 K/uL (0.00-0.02) H 09/18/22 11:14 ESR 89 mm/hr (0-30) H 09/18/22 11:14 Sodium 134 mmol/L (136-145) L 09/18/22 11:14 Potassium 3.2 mmol/L (3.5-5.1) L 09/18/22 11:14 Chloride 99 mmol/L (98-107) 09/18/22 11:14 Carbon Dioxide 26 mmol/L (21-32) 09/18/22 11:14 Anion Gap 9 (3-11) 09/18/22 11:14 BUN 6 mg/dl (6-23) 09/18/22 11:14 Creatinine 0.74 mg/dl (0.6-1.2) 09/18/22 11:14 Est Cr Clr Drug Dosing Not Reportable 09/18/22 11:14 Est GFR ( Amer) 97.8 ml/min 09/18/22 11:14 Est GFR (Non-Af Amer) 84.4 ml/min 09/18/22 11:14 BUN/Creatinine Ratio 8.1 (10-20) L 09/18/22 11:14 Glucose 142 mg/dl (70-99(Fasting)) H 09/18/22 11:14 Calcium 9.9 mg/dl (8.5-10.1) 09/18/22 11:14 Total Bilirubin 0.5 mg/dl (0.2-1.0) 09/18/22 11:14 AST 17 U/L (13-39) 09/18/22 11:14 ALT 15 U/L (7-52) 09/18/22 11:14 Alkaline Phosphatase 88 U/L (34-104) 09/18/22 11:14 Troponin I High Sens 5.7 pg/ml (0-14) 09/18/22 11:14 C-Reactive Protein 0.79 mg/dl (0-0.5) H 09/18/22 11:14 Total Protein 8.2 gm/dl (6.0-8.3) 09/18/22 11:14 Albumin 4.4 gm/dl (3.4-5.0) 09/18/22 11:14 Globulin 3.8 gm/dl (2.5-4.0) 09/18/22 11:14 Albumin/Globulin Ratio 1.2 (0.9-2) 09/18/22 11:14 Lipase 15 U/L (11-82) 09/18/22 11:14 Urine Color Yellow 09/18/22 13:22 Urine Appearance Clear (Clear) 09/18/22 13:22 Urine pH 7.0 (4.5-7.5) 09/18/22 13:22 Ur Specific [place] 1.002 (1.000-1.030) 09/18/22 13:22 Urine Protein Negative (Negative) 09/18/22 13:22 Urine Glucose (UA) Negative (Negative) 09/18/22 13:22 Urine Ketones Negative (Negative) 09/18/22 13:22 Urine Blood Negative (Negative) 09/18/22 13:22 Urine Nitrite Negative (Negative) 09/18/22 13:22 Urine Bilirubin Negative (Negative) 09/18/22 13:22 Urine Urobilinogen Negative (Negative) 09/18/22 13:22 Ur Leukocyte Esterase Negative (Negative) 09/18/22 13:22 SARS-CoV-2, RNA, NAAT NEGATIVE (NEGATIVE) 09/18/22 17:11 Impressions Abdomen/Pelvis CT 09/18/22 12:[address] WITH IV CONTRAST CT DOSE: 829.67 mGycm HISTORY: b/l flank pain TECHNIQUE: Multiaxial CT images of the abdomen and pelvis were performed following the use of intravenous contrast. A dose lowering technique was utilized adhering to the principles of ALARA. COMPARISON STUDY: None. FINDINGS: Mild dependent changes seen within the lung bases. No fractures within the visualized osseous structures. Mild degenerative changes within the lumbar spine. Prior cholecystectomy. This likely accounts for the mild to moderate bile duct dilatation. No hepatic or splenic masses. The main portal vein is patent. The pancreas, adrenal glands, and spleen are unremarkable. No renal or ureteral stones. No hydronephrosis. There is a 2 cm hypodense lesion within the right kidney consistent with a cyst. Moderate calcified plaque within the mildly ectatic abdominal aorta. No evidence for an aortic dissection. No pelvic lymphadenopathy or pelvic free fluid. The bladder is mildly distended. No bladder wall thickening. Prior hysterectomy. Mild pelvic floor collapse. No bowel wall thickening or obstruction. Normal appendix. Fluid-filled nondilated colon. This could be seen in the setting of a diarrheal illness. IMPRESSION: 1. No bowel wall thickening or obstruction. 2. Normal appendix. 3. Fluid-filled nondilated colon. This is nonspecific but could be seen in the setting of a diarrheal illness. 4. Mildly distended bladder. No bladder wall thickening. 5. Mild to moderate bile duct dilatation. This could be due to the patient's postcholecystectomy state. Recommend correlation with LFTs. ACT 112: Negative or not required by law. Electronically signed by: Gama Robles M.D. 09/18/2022 3:23 PM PG Care Time/CCT Total # of Minutes Spent Total Time Spent with Patient: Total time spent is greater than 50% in coordination of care (as documented) at patient's floor/unit and/or counseling patient: Coding Level of Care Code 30492 Inpt Consult Level 3 Diagnoses Diarrhea R19.7 Flank pain R10.[address] scan, colon R93.3
[2022-09-19] MEDS ORDERED: HYDROCORTISONE HC 2.5% CRM 30GM TUBE EXT PRN (12:31)
--- NOTE | 2022-09-19 13:53 | XRay Report ---
XR lumbar spine 2-3V, XR thoracic spine 2V CLINICAL HISTORY: pain TECHNIQUE: 3 views of the lumbar spine were obtained. 2 views of thoracic spine were obtained. Comparison: Comparison is made to CT abdomen pelvis 09/18/2022 FINDINGS: There is no evidence of an acute fracture. Degenerative changes are seen in the lumbar spine. The ali gnment is normal. Vascular calcifications are noted. IMPRESSION: Degenerative changes as above without acute fracture or subluxation. ACT 112: Negative or not required by law. Electronically signed by: Don López M.D. 09/19/2022 1:51 PM
[2022-09-19] MEDS: MONTELUKAST SODIUM 10 MG TABLET PO SCH (20:06)
[2022-09-19] MEDS: CLOPIDOGREL BISULFATE 75 MG TAB PO SCH (20:06)
[2022-09-19] MEDS: PANTOprazole 40 MG TAB PO SCH (20:06)
[2022-09-19] MEDS: dilTIAZem HCL 120 MG CAPCR PO SCH (20:06)
--- NOTE | 2022-09-19 22:17 | Electrocardiogram Report ---
Test Reason : Blood Pressure : / mmHG Vent. Rate : 096 BPM Atrial Rate : 096 BPM P-R Int : 184 ms QRS Dur : 084 ms QT Int : 340 ms P-R-T Axes : 047 048 -07 degrees QTc Int : 429 ms Normal sinus rhythm Possible Left atrial enlargement Cannot rule out Anterior infarct (cited on or before 18-SEP-2022) Nonspecific T wave abnormality Abnormal ECG When compared with ECG of 12-SEP-2022 12:40, No significant change was found Confirmed by Eduardo Gomez ([id number]) on 09/19/2022 10:17:03 PM Referred By: REFERRED SELF Confirmed By:Eduardo Gomez
--- NOTE | 2022-09-19 22:41 | Electrocardiogram Report ---
Test Reason : Blood Pressure : / mmHG Vent. Rate : 076 BPM Atrial Rate : 076 BPM P-R Int : 198 ms QRS Dur : 090 ms QT Int : 398 ms P-R-T Axes : 044 038 019 degrees QTc Int : 447 ms Normal sinus rhythm Nonspecific T wave abnormality When compared with ECG of 18-SEP-2022 11:18, No significant change was found Confirmed by Eduardo Gomez ([id number]) on 09/19/2022 10:41:17 PM Referred By: REFERRED SELF Confirmed By:Eduardo Gomez
[2022-09-20] MEDS: DICYCLOMINE HCL 20 MG TAB PO SCH ×2 (04:35→11:02)
[2022-09-20] MEDS: LACTATED RINGER'S 1,000 ML IV SCH (04:39)
[2022-09-20] MEDS: oxyCODONE HCL IR 5 MG TAB (IMMEDIATE RELEASE) PO PRN (05:48)
[2022-09-20 07:05] LABS: Hematocrit (blood only) 36.6 % (34.1-44.9); Hemoglobin 11.8 g/dl (12.0-16.0); Mean Corpuscular Hgb Conc 32.2 g/dL (32.0-36.0); Mean Corpuscular Volume 86.7 fL (80.0-100.0); Mean Platelet Volume 9.3 fL (9.4-12.3); Platelet Count 321 K/uL (130-400); RDW Coefficient of Variation 13.9 % (11.5-14.5); Red Blood Count 4.22 M/uL (3.93-5.22); White Blood Count 6.85 K/ul (4.8-10.8)
[2022-09-20 07:25] LABS: BUN Creatinine Ratio 6.7 (10-20); Calcium 8.4 mg/dl (8.5-10.1); Creatinine Clr Calc Pharmacy 74.1 ml/min; Est GFR (African American) 96.3 ml/min; Est GFR (Non-African American) 83.1 ml/min; Potassium 3.5 mmol/L (3.5-5.1)
[2022-09-20] MEDS: FEXOFENADINE HCL 180 MG TAB PO SCH (08:22)
[2022-09-20] MEDS: ACETAMINOPHEN 500 MG TAB PO SCH ×2 (08:22→15:37)
[2022-09-20] MEDS: VALSARTAN 80 MG TAB PO SCH (08:22)
--- NOTE | 2022-09-20 08:40 | Hospitalist Progress Note ---
Date of Service September 20, 2022 Assessment & Plan (1) Flank pain: Plan: CTAP with only fluid filled nondilated colon due to her diarrheal state -Was taking Domperidone and Metronidazole and recommended to stop both due to no improvement in the diarrhea Pulmonary embolism considered but given duration without hypoxia and negative d- dimer probability is extremely low for an atypical pain such as this Pulse Ox 100% on RA Ureterolithiasis considered but given duration of pain and completely normal UA also low suspicion Ductal dilatation on CT with normal LFTs and no RUQ pain - likely normal in post cholecystectomy state Stool PCR and c. diff, Stool H Pylori and GI PCR panel ordered by GI to assess cause of persistent diarrheal illness. Not collected ESR elevated 89, CRP 0.79 Consider Imodium if having diarrhea, after C Diff resulted Continue Bentyl for abdominal pain given history of "gastric issues" which could be IBS Continue tylenol GI consulted Likely mechanical back pain Xray thoracic and lumbar spine per family request Heating pad PT evaluation Continue Tylenol (2) Coronary artery disease: Plan: Continue clopidogrel, valsartan, diltiazem Patient advise to discuss rosuvastatin with her pickler helper as she is not routinely taking this (3) Hypertension: Plan: Continue diltiazem 120mg and valsartan 160mg (4) Asthma: Plan: Continue her routine inhalers (5) Hemorrhoids without complication: Plan: Anusol cream TID or after BM as needed Plan VTE Prophylaxis - low risk, chemical prophylaxis deferred Diet - clear liquid Disposition - admit to med/surg Admission and Anticipated Discharge Date Admission Date: September 18, 2022 Review of Systems Constitutional: no fever, no chills, no weight loss and no weight gain Ear, Nose, Mouth, Throat: no nasal congestion, no post nasal drip and no pain with swallowing Respiratory: no cough, no chest congestion, no dyspnea and no hemoptysis Cardiovascular: no chest pain, no dyspnea, no syncope and no edema Gastrointestinal: + diarrhea/loose stools; no abdominal pain, no nausea, no vomiting, no dysphagia, no constipation and no blood in stools Genitourinary: no dysuria, no urinary frequency and no urinary hesitancy Musculoskeletal: + back pain and + limited range of motion; no neck pain and no muscle weakness Integumentary: no rash, no lesions and no new lesions Physical Exam Constitutional: WD/WN, vitals as above Neck: trachea midline, no thyromegaly Respiratory: normal respiratory effort, lungs clear to auscultation Cardiovascular: RRR, no murmur, no edema Extremities: no edema Gastrointestinal (Abdomen): normal bowel sounds, soft, nontender, no hepatosplenomegaly Results & Data Results & Data ([facility]) Vital Signs (Past 12 Hours) Vital Signs Temp Pulse Resp BP Pulse Ox O2 Del Method 09/20/22 07:14 36.6 C 70 16 157/86 H 98 Room Air Laboratory Results Abnormal lab results 09/20/22 09/20/22 Range/Units 06:30 06:30 Hgb 11.8 L (12.0-16.0) g/dl MPV 9.3 L (9.4-12.3) fL BUN 5 L (6-23) mg/dl BUN/Creatinine Ratio 6.7 L (10-20) Calcium 8.4 L (8.5-10.1) mg/dl CRP - 0.79 ESR - 89 PG Care Time/CCT Total # of Minutes Spent Total Time Spent with Patient: Total time spent is greater than 50% in coordination of care (as documented) at patient's floor/unit and/or counseling patient: Coding Diagnoses Flank pain R10.9 Coronary artery disease I25.10 Associated angina: without angina Coronary Disease-Associated Artery/Lesion type: [place] artery [place] vs. transplanted heart: [place] heart Hypertension I10 Asthma J45.909 Hemorrhoids without complication K64.9 (1) Coronary artery disease Associated angina: without angina Coronary Disease-Associated Artery/Lesion type: [place] artery [place] vs. transplanted heart: [place] heart Qualified Code(s): I25.10 - Atherosclerotic heart disease of [place] coronary artery without angina pectoris
[2022-09-20 12:14] LABS: Adenovirus F 40/41 PCR Not Detected (NotDetected); Astrovirus PCR Not Detected (NotDetected); Campylobacter PCR Not Detected (NotDetected); Cryptosporidium PCR Not Detected (NotDetected); Cyclospora cayetanensis PCR Not Detected (NotDetected); Entamoeba histolytica PCR Not Detected (NotDetected); Enteroaggregative E.coli(EAEC) Not Detected (NotDetected); Enterotoxigenic E.coli (ETEC) Not Detected (NotDetected); Giardia lamblia PCR Not Detected (NotDetected); Norovirus GI/GII PCR Not Detected (NotDetected); Plesiomonas shigelloides PCR Not Detected (NotDetected); Rotavirus A PCR Not Detected (NotDetected); Salmonella PCR Not Detected (NotDetected); Sapovirus PCR Not Detected (NotDetected); Shiga-like Toxin E.coli (STEC) Not Detected (NotDetected); Shigella/Enteroinvasive E.coli Not Detected (NotDetected); Vibrio cholerae PCR Not Detected (NotDetected); Vibrio species PCR Not Detected (NotDetected); Yersinia enterocolitica PCR Not Detected (NotDetected)
[2022-09-20 12:30] LABS: Enteropathogenic E.coli (EPEC) DETECTED (NotDetected)
--- NOTE | 2022-09-20 14:27 | Discharge Summary ---
Date of Service September 20, 2022 Admission HPI Per Admitting Provider Lisa Mckinnon is a 67 year old female who presents to the ER with flank pain. Patient is from [facility] and history obtained with use of director fundraising and patient's son at bedside. Initial right flank pain is the same pain she had when she was admitted on September 12 although it started the day prior to this. She reported initially never having this pain previously however later in our conversation she said she was in a hospital in [facility] with a similar pain related to her "gastric issues" and she received something through her IV which worked. Generally though this is very out of the ordinary for her to have pain like this. Reportedly improved while she was in hospital recently but started getting worse again for the last 2-3 days. Progressively getting worse sharp pain, worse on movement although she is also moving around in bed constantly trying and get comfortable. No worse on inspiration. Possible improvement when she passes flatus. Worse with sitting up or standing. Crying out with 10/10 pain in the ER but currently 7/10 after morphine given. No improvement with "muscle relaxant". Her son feels he is no longer able to take her home as her pain is not controlled. She has a previously cholecystectomy and reports this feels similar to her previous gallbladder pain. She has a diarrheal illness for the last month with mucus and has been taking metronidazole 800mg PO daily which has not been helping. Despite all her "gastric issues" she reportedly has never had a colonoscopy. Given her uncontrolled pain she was referred to medicine for admission and ongoing management. Principal Diagnosis back pain Discharge Exam Constitutional WD/WN, vitals as above Patient is resting in bed in NAD Neck trachea midline, no thyromegaly Respiratory normal respiratory effort, lungs clear to auscultation Cardiovascular RRR, no murmur, no edema Extremities: no calf tenderness, no pedal edema and no edema Gastrointestinal (Abdomen) normal bowel sounds, soft, nontender, no hepatosplenomegaly Musculoskeletal Full spinal ROM, tender to palpation right thoracic paraspinal muscles, no kirby deformity, neg SLR, normal gaits,DTRs +2 symmetric. No pain with AP or lateral compression of ribs Discharge Data Allergies Allergy/AdvReac Type Severity Reaction Status Date / Time No Known Allergies Allergy Verified 09/18/22 16:32 Consultations 09/18/22 15:35 ED Decision to Admit Stat 09/18/22 19:50 Consult Gastroenterology Routine Ordered Studies 09/18/22 12:05 CT abd pelvis IV con only Stat FINDINGS: Mild dependent changes seen within the lung bases. No fractures within the visualized osseous structures. Mild degenerative changes within the lumbar spine. Prior cholecystectomy. This likely accounts for the mild to moderate bile duct dilatation. No hepatic or splenic masses. The main portal vein is patent. The pancreas, adrenal glands, and spleen are unremarkable. No renal or ureteral stones. No hydronephrosis. There is a 2 cm hypodense lesion within the right kidney consistent with a cyst. Moderate calcified plaque within the mildly ectatic abdominal aorta. No evidence for an aortic dissection. No pelvic lymphadenopathy or pelvic free fluid. The bladder is mildly distended. No bladder wall thickening. Prior hysterectomy. Mild pelvic floor collapse. No b owel wall thickening or obstruction. Normal appendix. Fluid-filled nondilated colon. This could be seen in the setting of a diarrheal illness. IMPRESSION: 1. No bowel wall thickening or obstruction. 2. Normal appendix. 3. Fluid-filled nondilated colon. This is nonspecific but could be seen in the setting of a diarrheal illness. 4. Mildly distended bladder. No bladder wall thickening. 5. Mild to moderate bile duct dilatation. This could be due to the patient's postcholecystectomy state. Recommend correlation with LFTs. XR lumbar spine 2-3V, XR thoracic spine 2V CLINICAL HISTORY: pain TECHNIQUE: 3 views of the lumbar spine were obtained. 2 views of thoracic spine were obtained. Comparison: Comparison is made to CT abdomen pelvis 09/18/2022 FINDINGS: There is no evidence of an acute fracture. Degenerative changes are seen in the lumbar spine. The alignment is normal. Vascular calcifications are noted. IMPRESSION: Degenerative changes as above without acute fracture or subluxation. CXR FINDINGS: The lungs are clear. Cardiac silhouette is normal in size. No pleural effusions. No pneumothorax. Calcifications noted within the aortic knob. IMPRESSION: No acute process. Hospital Course (1) Flank pain: CTAP with only fluid filled nondilated colon due to her diarrheal state -Was taking Domperidone and Metronidazole and recommended to stop both due to no improvement in the diarrhea Pulmonary embolism considered but given duration without hypoxia and negative d- dimer probability is extremely low for an atypical pain such as this Pulse Ox 100% on RA Ureterolithiasis considered but given duration of pain and completely normal UA also low suspicion Ductal dilatation on CT with normal LFTs and no RUQ pain - likely normal in post cholecystectomy state GI consulted and ordered Stool PCR and c. diff, Stool H Pylori and GI PCR panel also will be sent to assess cause of persistent diarrheal illness. Stool today soft and light lai (no diarrhea) -Stool + Enteropathogenic E Coli (See below) Continue Bentyl for abdominal pain given history of "gastric issues" which could be IBS Patient stated this medication helped her abdominal pain Currently patient has No abdominal pain Likely mechanical back pain Xray thoracic and lumbar spine per family request Revealing no acute changes with degenerative changes Heating pad PT evaluation Continue Tylenol Added Voltaren gel (2) Enteropathogenic Escherichia coli infection: Patient's profuse diarrhea has since resolved but likely this was what was causing her diarrhea. Patient currently has no abdominal pain, tolerating heart healthy diet and states the Bentyl was helping with the abdominal pain. She has only had one small soft BM thus far today. (3) Coronary artery disease: Continue clopidogrel, valsartan, diltiazem Patient advise to discuss rosuvastatin with her certified prosthetist vice president as she is not routinely taking this (4) Hypertension: Continue diltiazem 120mg and valsartan 160mg (5) Asthma: Continue her routine inhalers (6) Hemorrhoids without complication: Anusol cream TID or after BM as needed Plan VTE Prophylaxis - low risk, chemical prophylaxis deferred Diet - advanced today to heart healthy Disposition - discharge today Total Time Total Time Spent Total Time Spent (In Minutes): 35 Discharge Plan Discharge Items Patient Disposition: Home - Self-Care Reason For Visit: BACK PAIN Discharge Diagnosis: Mechanical Back pain Enteropathogenic E coli in Stool Condition on Discharge: Good Activity: Resume your previous activity Lifting: Gradually increase as tolerated Weightbearing: Full weightbearing Non-emergency contact: Primary Care Provider Call non-emergency contact if: you have any medication questions, your symptoms worsen and your temperature is above 101.5 Follow-up/Referrals: PCPJIMMY [Primary Care Provider] - Diet: Heart Healthy Addtl Attending Provider Instructions: You were admitted with complaints of back pain in the flank area. You had a CT of your abdomen that revealed fluid in the colon. Likely a diarrheal state. Incidentally when you were admitted your diarrhea improved but stool culture revealed Enteropathogenic E. Coli. This is a pathogen is most commonly among children under 6 months of age or in resource limited countries. And in patients with pathogenic E Coli we do not suggest routine antibiotic therapy. Plus your symptoms of the diarrhea are already improving off the antibiotics and the domperidone. You had normal urinalysis with no blood and normal lab work. You had normal oxygen saturation and no signs of any lung issues. Your vital signs remained stable. You had xrays of your back revealing no acute changes and only degenerative (arthritis) changes. We've got you set up with [facility] Family Medicine, Dr Elvis Mayorga DO, 09/28 9:30am, [address], [address], [facility] [address] we're also working on getting expedited outpatient GI follow up to look at doing an upper endoscopy to evaluate further given the longstanding reflux use voltaren gel (topical diclofenac) to the right side of the back/the area of pain 4 times a day for the foreseeable future. Pending Studies at Discharge: Yes Studies:: H Pylori is still pending Stand-Alone Forms: My [facility], Smoking Cessation Medications and DC Order Prescriptions: New hydrocortisone [Proctosol HC] 2.5 % Cream With Perineal Applicator 1 applic EXT TID PRN (Reason: hemorrhoids) Qty: 30 0RF dicyclomine 20 mg Tablet 20 mg PO Q6H PRN (Reason: abdominal pain) 7 Days Qty: 30 0RF diclofenac sodium [Voltaren Arthritis Pain] 1 % Gel 2 g EXT Q12 PRN (Reason: back pain) 7 Days Qty: 100 0RF oxycodone 5 mg Tablet 5 mg PO Q6H MDD 20mg PRN (Reason: severe pain (scale score 7-10)) Qty: 5 0RF pantoprazole 40 mg tablet,delayed release (DR/EC) 40 mg PO Q12H Qty: 30 0RF Continued Azmasol Hfa Inh 2 puff inhalation DIRECTED PRN (Reason: Shortness Of Breath Or Wheezing) valsartan [Diovan] 160 mg Tablet 160 mg PO DAILY Rx Instructions: Per son Bexitrol-F Bexicap 50/250 0 puff inhalation DIRECTED PRN (Reason: Shortness Of Breath) Doxiva 20 mg PO BID Rx Instructions: PER SON Monas 10 mg PO DIRECTED Pladix 75 mg PO DAILY Sergil 40 mg PO DIRECTED PRN (Reason: ..) Rx Instructions: bid prn diltiazem HCl 120 mg capsule,extended release 24 hr 120 mg PO DAILY Qty: 30 0RF Discontinued Deflux Tab 10 mg PO BID Rofutin 20 mg PO DAILY PRN (Reason: ..) Discharge Orders: Discharge Order (Routine); Ordered 09/20/22 Ordered By: Chely Jaramillo/Other Patient Handouts: E. Coli Infection, Back Exercises: Lower Back Rotation, Back Exercises: Seated Rotation, Back Exercises: Side Stretch, Back Exercises: Arm Reach, Back Exercises: Knee Lift, Back Exercises: Leg Pull, Back Exercises: Leg Reach, Back Exercises: Lower Back Stretch, ED Back Exercises, Lumbar, ED Back Spasm, No Trauma, ED Irritable Bowel Syndrome Admission Data Admit Date/Time: 09/18/22 17:40 Attending Provider: Randy Waldrop Admit Provider: Zack Glover Primary Care Provider: PCP,NO Other Providers: Zack Glover ; Flex Nieto Other Interventions: Discharge Summary Assessment (RN) Last Done: 09/20/22 15:47 Supervising Physician Co-Signing Physician Notes I personally examined the patient and verified all art points of history and exam, discussed case, and agree with decision making with Jose ROSALES Right-sided back pain. Longstanding GERD. Vitals noted, in general she is awake pleasant appears a little bit uncomfortable. HEENT normocephalic atraumatic mucous membranes moist. Right- sided mid thoracic paraspinals very high tone, tender, decreased range of motiondirect myofascialsignificant improvement in tissue texture changes, patient tolerated well. Thoracic back painsuspect this is predominantly if not all biomechanical, that said, she does have longstanding reflux that has been managed but not necessarily evaluated. Discussed that I do strongly suspect that her upper GI chronicity has led to a viscerosomatic reflex leading to the back pain as a secondary but now separate problem. OMT for back pain. Safe/stable for home on PPI as it relates to upper GI issues, but definitely will facilitate outpatient GI follow-up and hopeful outpatient EGD in short order (asked navigator to help facilitate. Also personally set patient up with local PCP who is a DO in our family medicine residency program so that he can continue to oversee her care as well as continue OMT. Coding Level of Care Code D/C DAY MANAGEMENT >30 MINS Diagnoses Flank pain R10.9 Enteropathogenic Escherichia coli infection A04.0 Coronary artery disease I25.10 Associated angina: without angina Coronary Disease-Associated Artery/Lesion type: [place] artery [place] vs. transplanted heart: [place] heart Hypertension I10 Asthma J45.909 Hemorrhoids without complication K64.9 Time Spent (min) 40
[2022-09-20] MEDS ORDERED: DICLOFENAC SOD 1% GEL 100 GM TUBE EXT SCH (21:00)
== END 2022-09-20 17:25 | disposition home or self-care (01) | DRG 392 ==
LOC: ED 11:04 → EDINP 17:40 → SUATTDRO 17:40 → 3N 22:51